=== PATIENT | female | born 1975 ===

== ENCOUNTER 2017-04-08 21:48 | Emergency (ER) | payer BC ==
[2017-04-08 21:49] VITALS: BMI 38.6
[2017-04-08 22:00] VITALS: BP 133/85; PULSE 90; RESP 17; TEMP 97.4; O2SAT 97
--- NOTE | 2017-04-08 22:13 | ED PDOC ---
Lower Extremity Pain/Injury Time Seen by Provider: 04/08/17 22:01 Chief Complaint (Nursing): Lower Extremity Problem/Injury Chief Complaint (Provider): left thigh pain History Per: Patient History/Exam Limitations: no limitations Additional Complaint(s): 41yo F in ED for eval of leg injury states that while running to the bus felt a pull to the thigh muscle and felt a pull/strain/crack sound to her thigh. no with pain with bearing weight and walking. denies hip pain denies back pain. deniesswelling to foot or calf pain. - Risk Factors DVT Risk Factors: Pos: None Past Medical History Reviewed: Historical Data, Nursing Documentation, Vital Signs Vital Signs: Last Vital Signs Temp 97.4 F L 04/08/17 21:57 Pulse 90 04/08/17 21:57 Resp 17 04/08/17 21:57 BP 133/85 04/08/17 21:57 Pulse Ox 97 04/08/17 21:57 - Medical History PMH: Anemia, Anxiety, Arthritis, Asthma, Bronchitis, Depression, Diabetes Denies: Alzheimer's Disease, Atrial Fibrillation, Cardia Arrhythmia, CHF, COPD, Dementia, Deep Vein Thrombosis, Emphysema, Hepatitis, HIV, HTN, Hypercholesterolemia, Migraine, Mitral Valve Prolapse, Multiple Sclerosis, Parkinson's Disease, Peripheral Edema, Pneumonia, Pulmonary Embolism, Chronic Kidney Disease, Seizures, Sexually Transmitted Disease, Sleep Apnea, TIA - Surgical History Surgical History: Back Surgery, Cholecystectomy (2007), Denies: Pacemaker - Family History Family History: States: Unknown Family Hx - Immunization History Hx Influenza Vaccination: Yes - Home Medications Home Medications: Ambulatory Orders Medication Instructions Recorded diaZEpam [Valium] 5 mg PO TID #0 tab 01/21/16 Sulfamethoxazole/Trimethoprim 1 tab PO BID 01/27/16 [Bactrim DS Tab] metFORMIN [glucOPHAGE] 500 mg PO BID 01/27/16 oxyCODONE/Acetaminophen [Percocet 1 tab PO Q4 PRN 01/27/16 5/325 mg Tab] Ibuprofen [Motrin] 400 mg PO Q6 #30 tab 04/08/17 - Allergies Allergies/Adverse Reactions: Allergies Allergy/AdvReac Type Severity Reaction Status Date / Time seasonal Allergy NAUSEA Uncoded 04/08/17 22:00 Review of Systems ROS Statement: Except As Marked, All Systems Reviewed And Found Negative Musculoskeletal: Positive for: Leg Pain Physical Exam - Reviewed Nursing Documentation Reviewed: Yes Vital Signs Reviewed: Yes - Physical Exam Appears: Positive for: Well, Non-toxic, No Acute Distress Skin: Positive for: Normal Color, Warm, DRY Cardiovascular/Chest: Positive for: Regular Rate, Rhythm Respiratory: Positive for: CNT, Normal Breath Sounds Gastrointestinal/Abdominal: Positive for: Soft Extremity: Positive for: Other (left LE: no hip pain no abd [pain very mild knee pain no swelilng thigh superior to knee pain on palpation. no IT band tenderness. ankle WNL) Neurologic/Psych: Positive for: Alert, Oriented - ECG O2 Sat by Pulse Oximetry: 97 - Progress ED Course And Treament: pt given tylenol xray r/o fx. Medical Decision Making Medical Decision Making: Patient given a knee immobilizer and advised to use warm compresses to the area and massage to help relieve pain. Patient also informed to take Motrin as needed for pain and to rest her leg. Disposition - Clinical Impression Clinical Impression: Muscle pain - Patient ED Disposition Is Patient to be Admitted: No Counseled Patient/Family Regarding: Need For Followup, Rx Given - Disposition Disposition: Routine/Home Disposition Time: 22:52 Condition: STABLE Prescriptions: Ibuprofen [Motrin] 400 mg PO Q6 #30 tab Instructions: Musculoskeletal Pain (ED) Forms: [employer] (Citizen Of [place])
--- NOTE | 2017-04-09 09:31 | RAD ---
HISTORY: injury COMPARISON: No prior FINDINGS: BONES: Normal. No fracture. JOINTS: Normal. No osteoarthritis. SOFT TISSUE: Normal. OTHER FINDINGS: None . IMPRESSION: Normal Bone Xray.
--- NOTE | 2017-04-09 09:31 | RAD ---
HISTORY: injury COMPARISON: No prior FINDINGS: BONES: Normal. No fracture. JOINTS: Normal. No osteoarthritis. SOFT TISSUE: Normal. OTHER FINDINGS: None . IMPRESSION: Normal Bone Xray.
== END 2017-04-08 22:44 | disposition home or self-care (01) ==
LOC: H.ER 21:48
DX: M79.1 Myalgia (principal)

== ENCOUNTER 2017-07-02 15:45 | Inpatient (IN) | payer BC ==
[2017-07-02 15:45] VITALS: BMI 38.6
--- NOTE | 2017-07-02 16:36 | ED PDOC ---
HPI: General Adult Time Seen by Provider: 07/02/17 16:03 Chief Complaint (Nursing): Chest Pain History Per: Patient Additional Complaint(s): Pt. states for the past 4 days she's been feeling anxious as her was recently hospitalized. States that she has been taking her klonopin with minimal relief. Yesterday she began to develop mid-sternal chest pain radiating to both arms and neck associated with intermittent palpitations. Denies SI/HI, hallucinations, hemoptysis, fever, cough, abdominal pain, hx of DV or PE, leg pain, prolonged limb immobilization, hemoptysis. Past Medical History Reviewed: Historical Data, Nursing Documentation, Vital Signs Vital Signs: Last Vital Signs Temp 98.0 F 07/02/17 15:58 Pulse 76 07/02/17 15:58 Resp 16 07/02/17 15:58 BP 120/59 L 07/02/17 15:58 Pulse Ox 99 07/02/17 18:43 - Medical History PMH: Anemia, Anxiety, Arthritis, Asthma, Bronchitis, Depression, Diabetes Denies: Alzheimer's Disease, Atrial Fibrillation, Cardia Arrhythmia, CHF, COPD, Dementia, Deep Vein Thrombosis, Emphysema, Hepatitis, HIV, HTN, Hypercholesterolemia, Migraine, Mitral Valve Prolapse, Multiple Sclerosis, Parkinson's Disease, Peripheral Edema, Pneumonia, Pulmonary Embolism, Chronic Kidney Disease, Seizures, Sexually Transmitted Disease, Sleep Apnea, TIA - Surgical History Surgical History: Back Surgery, Cholecystectomy (2007), Denies: Pacemaker - Family History Family History: States: No Known Family Hx - Immunization History Hx Influenza Vaccination: Yes - Home Medications Home Medications: Ambulatory Orders Medication Instructions Recorded diaZEpam [Valium] 5 mg PO TID #0 tab 01/21/16 Sulfamethoxazole/Trimethoprim 1 tab PO BID 01/27/16 [Bactrim DS Tab] metFORMIN [glucOPHAGE] 500 mg PO BID 01/27/16 oxyCODONE/Acetaminophen [Percocet 1 tab PO Q4 PRN 01/27/16 5/325 mg Tab] Ibuprofen [Motrin] 400 mg PO Q6 #30 tab 04/08/17 - Allergies Allergies/Adverse Reactions: Allergies Allergy/AdvReac Type Severity Reaction Status Date / Time seasonal Allergy NAUSEA Uncoded 04/08/17 22:00 Review of Systems ROS Statement: Except As Marked, All Systems Reviewed And Found Negative Cardiovascular: Positive for: Chest Pain Physical Exam - Reviewed Nursing Documentation Reviewed: Yes Vital Signs Reviewed: Yes - Physical Exam Appears: Positive for: Well, Non-toxic, No Acute Distress Head Exam: Positive for: ATRAUMATIC, NORMAL INSPECTION, NORMOCEPHALIC Skin: Positive for: Normal Color, Warm. Negative for: Rash Eye Exam: Positive for: EOMI, Normal appearance, PERRL ENT: Positive for: Normal ENT Inspection Neck: Positive for: Normal, Painless ROM Cardiovascular/Chest: Positive for: Regular Rate, Rhythm. Negative for: Tachycardia Respiratory: Positive for: CNT, Normal Breath Sounds Gastrointestinal/Abdominal: Positive for: Normal Exam, Soft. Negative for: Tenderness Back: Positive for: Normal Inspection Extremity: Positive for: Normal ROM Neurologic/Psych: Positive for: Alert, Oriented. Negative for: Aphasia, Facial Droop - Laboratory Results Result Diagrams: 07/02/17 16:40 07/02/17 16:40 - ECG ECG: Positive for: Interpreted By Me ECG Rhythm: Positive for: Sinus Rhythm. Negative for: ST/T Changes O2 Sat by Pulse Oximetry: 99 - Radiology X-Ray: Interpreted by Me (CXR) X-Ray Interpretation: No Acute Disease - Progress ED Course And Treament: Labs ordered. Xanax 0.5mg PO ordered. ASA 162mg chew ordered (pt. took 81mg PO today). 1842 On re-evaluation, pt. reports mild improvement. Case d/w Dr. Mota and arrangements made for 23 hr telemetry observation. Disposition - Clinical Impression Clinical Impression: Acute chest pain - Patient ED Disposition Is Patient to be Admitted: Yes - Disposition Disposition Time: 18:43 Condition: STABLE
[2017-07-02 16:52] LABS: BASO # 0.1 K/uL (0.0-0.2); BASO % 0.9 % (0.0-2.0); EOS # 0.1 K/uL (0.0-0.7); EOS % 1.1 % (0.0-4.0); HEMATOCRIT 39.5 % (34.0-47.0); LYMPH # 2.7 K/uL (1.0-4.3); LYMPH % 27.5 % (20.0-40.0); MEAN CELL VOLUME 84.3 fl (81.0-99.0); MEAN CORPUSCULAR HEMOGLOBIN 28.5 pg (27.0-31.0); MEAN CORPUSCULAR HGB CONC 33.9 g/dL (33.0-37.0); MONO # 0.8 K/uL (0.0-0.8); MONO % 8.2 % (0.0-10.0); NEUT # 6.2 K/uL (1.8-7.0); NEUT % 62.3 % (50.0-75.0); NRBC % 0.1 % (0.0-0.0); RED CELL DISTRIBUTION WIDTH 13.7 % (11.5-14.5); WHITE BLOOD COUNT 9.9 K/uL (4.8-10.8)
[2017-07-02 17:02] LABS: ALB/GLOB RATIO 1.2 (1.0-2.1); ALKALINE PHOSPHATASE 92 U/L (38-126); ALT/SGPT 33 U/L (9-52); AST/SGOT 19 U/L (14-36); BILIRUBIN,TOTAL 0.6 mg/dl (0.2-1.3); BLOOD UREA NITROGEN 10 mg/dl (7-17); CARBON DIOXIDE 24 mmol/L (22-30); CHLORIDE 102 mmol/L (98-107); GFR AFRICAN-AMERICAN > 60; GLUCOSE,RANDOM 107 mg/dL (65-105); POTASSIUM 3.9 MMOL/L (3.6-5.0); SODIUM 139 mmol/l (132-148); TOTAL PROTEIN 7.5 G/DL (6.3-8.2)
[2017-07-02 18:08] LABS: THYROID STIMULATING HORMONE 1.23 mIU/ML (0.46-4.68)
[2017-07-03 05:38] LABS: HEMATOCRIT 39.2 % (34.0-47.0); MEAN CELL VOLUME 85.5 fl (81.0-99.0); MEAN CORPUSCULAR HEMOGLOBIN 28.9 pg (27.0-31.0); MEAN CORPUSCULAR HGB CONC 33.8 g/dL (33.0-37.0); RED CELL DISTRIBUTION WIDTH 13.8 % (11.5-14.5); WHITE BLOOD COUNT 7.7 K/uL (4.8-10.8)
[2017-07-03 05:46] LABS: ALB/GLOB RATIO 1.1 (1.0-2.1); ALKALINE PHOSPHATASE 79 U/L (38-126); ALT/SGPT 30 U/L (9-52); AST/SGOT 19 U/L (14-36); BILIRUBIN,TOTAL 0.7 mg/dl (0.2-1.3); BLOOD UREA NITROGEN 11 mg/dl (7-17); CALCIUM 8.8 mg/dL (8.4-10.2); CARBON DIOXIDE 27 mmol/L (22-30); CHLORIDE 103 mmol/L (98-107); CHOLESTEROL 126 mg/dL (0-199); GFR AFRICAN-AMERICAN > 60; GLUCOSE,RANDOM 124 mg/dL (65-105); TOTAL PROTEIN 7.1 G/DL (6.3-8.2)
[2017-07-03 05:48] LABS: T4 13.7 ug/dl (5.5-11.0)
[2017-07-03 05:52] LABS: POTASSIUM 3.7 MMOL/L (3.6-5.0); SODIUM 139 mmol/l (132-148)
[2017-07-03 06:02] LABS: THYROID STIMULATING HORMONE 0.93 mIU/ML (0.46-4.68)
[2017-07-03] MEDS: Enoxaparin 40 mg Syringe SC SCH (08:50)
--- NOTE | 2017-07-03 13:25 | RAD ---
HISTORY: chest pain COMPARISON: Chest radiographs 01/12/2016. FINDINGS: LUNGS: No active pulmonary disease. PLEURA: No significant pleural effusion identified, no pneumothorax apparent. CARDIOVASCULAR: Normal. OSSEOUS STRUCTURES: No significant abnormalities. VISUALIZED UPPER ABDOMEN: Normal. OTHER FINDINGS: None. IMPRESSION: No interval acute cardiopulmonary disease appreciated.
[2017-07-03] MEDS ORDERED: Potassium Chloride 20 mEq ER Tab PO ONE (19:30)
[2017-07-03] MEDS ORDERED: Magnesium Sulfate 2 gm/50 ml 2 GM/50 ML BAG IVPB ONE (20:00)
--- NOTE | 2017-07-03 22:27 | CP.PCM.CON ---
History of Present Illness - History of Present Illness History of Present Illness: 41YO ADMITTED WITH CP. DESCRIBED TIGHTNESS SUBSTERNAL WITH ASSOCIATED DYSPNEA, PALP, LH, LUE PARASTHESIAS WITH B/L HAND NUMBNESS. SHE STATES HER SYMPTOMS ARE SIMILAR TO HER ANXIETY, HOWEVER THEY ARE MUCH MORE SEVERE AND MORE FREQUENT. SHE HAS MULTIPLE RISK FACTORS INCLUDING DM, HTN, DYSLIPIDEMIA. SHE HAS NOT HAD MENSTRAL CYCLES FOR 2 YEARS. sHE HAS NO KNOWN FAM HX AND DENIES TOBACCO USE. PT HAS BEEN UNDER INCREASED STRESS LATELY. EKG DONE AT [facility] REVEALS VENT TRIGEMINY. TELE REVEALS NSR. SHE HAD A ST AND ECHO 6 YEARS AGO WHICH WERE NEGATIVE. Review of Systems - Constitutional Constitutional: As Per HPI. absent: Anorexia, Chills, Daytime Sleepiness, Excessive Sweating, Fatigue, Fever, Frequent Falls, Headache, Increased Appetite , Lethargy, Malaise, Night Sweats, Snoring, Sleep Apnea, Weight Gain, Weight Loss, Weakness, Other - EENT Eyes: As Per HPI. absent: Blind Spots, Blurred Vision, Change in Vision, Decreased Night Vision, Diplopia, Discharge, Dry Eye, Exophthalmos, Floaters, Irritation, Itchy Eyes, Loss of Peripheral Vision, Pain, Photophobia, Requires Corrective Lenses, Sees Flashes, Spots in Vision, Tunnel Vision, Other Visual Disturbances, Loss of Vision, Other Ears: As Per HPI. absent: Decreased Hearing, Ear Discharge, Ear Pain, Tinnitus , Abnormal Hearing, Disequilibrium, Dizziness, Other Nose/Mouth/Throat: As Per HPI. absent: Epistaxis, Nasal Congestion, Nasal Discharge, Nasal Obstruction, Nasal Trauma, Nose Pain, Post Nasal Drip, Sinus Pain, Sinus Pressure, Bleeding Gums, Change in Voice, Dental Pain, Dry Mouth, Dysphagia, Halitosis, Hoarsness, Lip Swelling, Mouth Lesions, Mouth Pain, Odynophagia, Sore Throat, Throat Swelling, Tongue Swelling, Facial Pain, Neck Pain, Neck Mass, Other - Breasts Breasts: As Per HPI. absent: Change in Shape, Mass, Pain, Nipple Discharge, Nipple Inversion, Skin Changes, Swelling, Other - Cardiovascular Cardiovascular: As Per HPI, Chest Pain at Rest, Dyspnea, Lightheadedness, Palpitations, Radiating Pain. absent: Acrocyanosis, Chest Pain, Chest Pain with Activity, Claudication, Diaphoresis, Dyspnea on Exertion, Edema, Irregular Heart Rhythm, Pain Radiating to Arm/Neck/Jaw, Leg Edema, Leg Ulcers, Orthopnea, Paroxysmal Nocturnal Dyspnea, Pedal Edema, Rapid Heart Rate, Slow Heart Rate, Syncope, Other - Respiratory Respiratory: As Per HPI. absent: Cough, Dyspnea, Hemoptysis, Dyspnea on Exertion, Wheezing, Snoring, Stridor, Pain on Inspiration, Chest Congestion, Excessive Mucous Production, Change in Mucous Color, Pain with Coughing, Other - Gastrointestinal Gastrointestinal: As Per HPI, Abdominal Pain. absent: Belching, Bloating, Change in Bowel Habits, Change in Stool Character, Coffee Ground Emesis, Constipation, Cramping, Diarrhea, Dyspepsia, Dysphagia, Early Satiety, Excessive Flatus, Fecal Incontinence, Heartburn, Hematemesis, Hematochezia, Loose Stools, Melena, Nausea, Odynophagia, Temesmus, Vomiting, Other - Genitourinary Genitourinary: As Per HPI. absent: Change in Urinary Stream, Difficulty Urinating, Dysuria, Flank Pain, Hematuria, Pyuria, Nocturia, Urinary Incontinence, Urinary Frequency, Urinary Hesitance, Urinary Urgency, Voiding Freq/Small Amts, Freq UTI, Hx Renal/Bladder Calculi, Hx /Renal Surgery, Bladder Distension, Other - Reproductive: Female Reproductive:Female: Post Menopausal. absent: As Per HPI, Amenorrhea, Amenorrhea/ Control, Currently Menstual, Cycle <21 Days, Cycle >35 Days, Cycle Variable, Menses 1-7 Days, Menses >/= 8 Days, Menses Variable, Cycle > 4 Weeks Between, No Menses for 6 Months, Heavy Menses, Light Menses, Normal Menses , Spotting Between Cycles, S/P Hysterectomy, Menopausal, Premenarche, Abnormal Vaginal Bleeding, Dysmenorrhea, Dyspareunia, Genital Lesions, Genital Pruritis, Pelvic Pain, Prolapse Symptoms, Sexual Dysfunction, Vaginal Discharge, Vaginal Dryness, Vaginal Odor, Vaginal Pruritis, Other - Menstruation Menstruation: As Per HPI. absent: Amenorrhea, Amenorrhea/ Control, Currently Menstual, Cycle <21 Days, Cycle >35 Days, Cycle Variable, Menses 1-7 Days, Menses >/= 8 Days, Menses Variable, Cycle > 4 Weeks Between, No Menses for 6 Months, Heavy Menses, Light Menses, Normal Menses, Spotting Between Cycles , S/P Hysterectomy, Menopausal, Post Menopausal, Premenarche, Abnormal Vaginal Bleeding, Dysmenorrhea, Other - Musculoskeletal Musculoskeletal: As Per HPI. absent: Abnormal Gait, Arthralgias, Atrophy, Back Pain, Deformity, Joint Swelling, Limited Range of Motion, Loss of Height, Muscle Cramps, Muscle Weakness, Myalgias, Neck Pain, Numbness, Radiating Pain into Limb, Stiffness, Tingling, Other - Integumentary Integumentary: As Per HPI. absent: Acne, Alopecia, Bleeding Lesions, Change in Hair, Change in Nails, Change in Pigmentation, Changing Lesions, Dry Skin, Erythema, Furuncle, Hirsutism, Lesions, New Lesions, Non-Healing Lesions, Photosensitivity, Pruritus, Rash, Skin Pain, Skin Ulcer, Sores, Striae, Swelling , Unusual Bruising, Wounds, Jaundice, Other - Neurological Neurological: As Per HPI. absent: Abnormal Gait, Abnormal Hearing, Abnormal Movements, Abnormal Speech, Behavioral Changes, Burning Sensations, Confusion, Convulsions, Disequilibrium, Dizziness, Numbness, Focal Weakness, Frequent Falls , Headaches, Lack of Coordination, Loss of Vision, Memory Loss, Paresthesias, Radicular Pain, Restless Legs, Sensory Deficit, Syncope, Tingling, Tremor, Vertigo, Weakness, Other Visual Disturbances, Other - Psychiatric Psychiatric: As Per HPI. absent: Abnormal Sleep Pattern, Anhedonia, Anxiety, Auditory Hallucinations, Behavioral Changes, Change in Appetite, Change in Libido, Confusion, Depression, Difficulty Concentrating, Hallucinations, Homicidal Ideation, Hopelessness, Irritability, Memory Loss, Mood Swings, Panic Attacks, Paranoia, Suicidal Ideation, Visual Hallucinations, Tactile Hallucinations, Other - Endocrine Endocrine: As Per HPI. absent: Change in Body Appearance, Change in Libido, Cold Intolorance, Deepening of Voice, Excessive Sweating, Fatigue, Flushing, Heat Intolorance, Increase in Ring/Shoe/Hat Size, Palpitations, Polydipsia, Polyphagia, Polyuria, Other - Hematologic/Lymphatic Hematologic: As Per HPI. absent: Easy Bleeding, Easy Bruising, Lymphadenopathy , Other Past Patient History - Infectious Disease Hx of Infectious Diseases: None - Past Medical History & Family History Past Medical History?: Yes - Past Social History Smoking Status: Never Smoked Chewing Tobacco Use: No Cigar Use: No Alcohol: None Drugs: Denies Home Situation {Lives}: With Family Domestic Violence: Negative - CARDIAC Hx Cardiac Disorders: Yes Hx Atrial Fibrillation: No Hx Cardia Arrhythmia: No Hx Congestive Heart Failure: No Hx Hypercholesterolemia: Yes Hx Hypertension: Yes Hx Mitral Valve Prolapse: No Hx Pacemaker: No Hx Peripheral Edema: No - PULMONARY Hx Respiratory Disorders: Yes Hx Asthma: Yes Hx Bronchitis: Yes Hx Chronic Obstructive Pulmonary Disease (COPD): No Hx Emphysema: No Hx Pneumonia: No Hx Pulmonary Embolism: No Hx Sleep Apnea: No - NEUROLOGICAL Hx Neurological Disorder: No Hx Alzheimer's Disease: No Hx Dementia: No Hx Migraine: No Hx Multiple Sclerosis: No Hx Parkinson's Disease: No Hx Seizures: No Hx Transient Ischemic Attacks (TIA): No - HEENT Hx HEENT Problems: No - RENAL Hx Chronic Kidney Disease: No - ENDOCRINE/METABOLIC Hx Endocrine Disorders: Yes (DM) Hx Diabetes Mellitus Type 2: Yes - HEMATOLOGICAL/ONCOLOGICAL Hx Blood Disorders: Yes Hx AIDS: No Hx Anemia: Yes Hx Human Immunodeficiency Virus (HIV): No - INTEGUMENTARY Hx Dermatological Problems: No - MUSCULOSKELETAL/RHEUMATOLOGICAL Hx Musculoskeletal Disorders: Yes Hx Arthritis: Yes Hx Falls: No - GASTROINTESTINAL Hx Gastrointestinal Disorders: No - GENITOURINARY/GYNECOLOGICAL Hx Genitourinary Disorders: No Hx Sexually Transmitted Disorders: No - PSYCHIATRIC Hx Psychophysiologic Disorder: Yes Hx Anxiety: Yes Hx Substance Use: No - SURGICAL HISTORY Hx Surgeries: Yes Hx Section: Yes Hx Cholecystectomy: Yes (2007) - ANESTHESIA Hx Anesthesia: Yes Hx Anesthesia Reactions: No Hx Malignant Hyperthermia: No Meds Allergies/Adverse Reactions: Allergies Allergy/AdvReac Type Severity Reaction Status Date / Time seasonal Allergy NAUSEA Uncoded 04/08/17 22:00 - Medications Medications: Current Medications Amlodipine Besylate (Norvasc) 5 mg PO HS [facility] Last Admin: 07/03/17 22:00 Dose: 5 mg Atorvastatin Calcium (Lipitor) 20 mg PO HS [facility] Last Admin: 07/03/17 21:59 Dose: 20 mg Enoxaparin Sodium (Lovenox) 40 mg SC DAILY [facility] PRN Reason: Protocol Last Admin: 07/03/17 08:50 Dose: 40 mg Ibuprofen (Motrin Tab) 600 mg PO HS [facility] Last Admin: 07/03/17 22:00 Dose: Not Given Lisinopril (Zestril) 5 mg PO HS [facility] Last Admin: 07/03/17 22:00 Dose: 5 mg Metformin HCl (Glucophage) 500 mg PO TID [facility] Last Admin: 07/03/17 17:02 Dose: 500 mg Potassium Chloride (K-Dur 20 Meq Er Tab) 40 meq PO ONCE ONE Stop: 07/04/17 01:31 Physical Exam - Constitutional Appears: Well - Head Exam Head Exam: ATRAUMATIC, NORMAL INSPECTION, NORMOCEPHALIC - Eye Exam Eye Exam: EOMI, Normal appearance, PERRL. absent: Conjunctival injection, Nystagmus, Periorbital swelling, Periorbital tenderness, Scleral icterus Pupil Exam: NORMAL ACCOMODATION, PERRL. absent: Fixed, Irregular, Miosis, Mydriatic, Unequal - ENT Exam ENT Exam: Mucous Membranes Moist, Normal Exam. absent: Mucous Membranes Dry, Normal External Ear Exam, Normal Oropharynx, TM's Normal Bilaterally - Neck Exam Neck exam: Positive for: Normal Inspection. Negative for: Full Rom, Lymphadenopathy, Meningismus, Tenderness, Thyromegaly - Respiratory Exam Respiratory Exam: Clear to Auscultation Bilateral, NORMAL BREATHING PATTERN. absent: Accessory Muscle Use, Chest Wall Tenderness, Decreased Breath Sounds, Prolonged Expiratory Phase, Rales, Rhonchi, Wheezes, Respiratory Distress, Stridor - Cardiovascular Exam Cardiovascular Exam: REGULAR RHYTHM, +S1, +S2, Systolic Murmur. absent: Bradycardia, Tachycardia, Clicks, Diastolic murmur, Gallop, Irregular Rhythm, JVD, RRR, Rubs, +S4 - GI/Abdominal Exam GI & Abdominal Exam: Normal Bowel Sounds, Soft. absent: Bruit, Diminished Bowel Sounds, Distended, Firm, Guarding, Hernia, Hyperactive Bowel Sounds, Hypoactive Bowel Sounds, Mass, Organomegaly, Pulsatile Mass, Rebound, Rigid, Tenderness - Rectal Exam Rectal Exam: Deferred - Extremities Exam Extremities exam: Positive for: normal inspection. Negative for: calf tenderness, full ROM, joint swelling, normal capillary refill, pedal edema, tenderness, pedal pulses present - Back Exam Back exam: NORMAL INSPECTION. absent: CVA tenderness (L), CVA tenderness (R), FULL ROM, muscle spasm, paraspinal tenderness, rash noted, tenderness, vertebral tenderness - Neurological Exam Neurological exam: Alert, CN II-XII Intact, Normal Gait, Oriented x3, Reflexes Normal - Psychiatric Exam Psychiatric exam: Normal Affect, Normal Mood - Skin Skin Exam: Dry, Intact, Normal Color, Warm Results - Vital Signs Recent Vital Signs: Last Vital Signs Temp 98.4 F 07/03/17 19:56 Pulse 87 07/03/17 22:00 Resp 20 07/03/17 19:56 BP 144/88 07/03/17 22:00 Pulse Ox 96 07/03/17 19:56 - Labs Result Diagrams: 07/03/17 04:10 07/03/17 04:10 Labs: Laboratory Results - last 24 hr 07/03/17 07/03/17 07/03/17 00:50 04:10 04:10 WBC 7.7 RBC 4.58 Hgb 13.2 Hct 39.2 MCV 85.5 MCH 28.9 MCHC 33.8 RDW 13.8 Plt Count 308 Sodium 139 Potassium 3.7 Chloride 103 Carbon Dioxide 27 Anion Gap 13 BUN 11 Creatinine 0.6 L Est GFR ( Amer) > 60 Est GFR (Non-Af Amer) > 60 POC Glucose (mg/dL) Random Glucose 124 H Calcium 8.8 Total Bilirubin 0.7 AST 19 ALT 30 Alkaline Phosphatase 79 Troponin I < 0.0120 Total Protein 7.1 Albumin 3.7 Globulin 3.4 Albumin/Globulin Ratio 1.1 Triglycerides 120 Cholesterol 126 LDL Cholesterol Direct 71 HDL Cholesterol 36 Vitamin B12 326 Thyroxine (T4) 13.7 H Total T3 1.46 L TSH 3rd Generation 0.93 07/03/17 07/03/17 07/03/17 05:31 09:30 09:30 WBC RBC Hgb Hct MCV MCH MCHC RDW Plt Count Sodium Potassium Chloride Carbon Dioxide Anion Gap BUN Creatinine Est GFR ( Amer) Est GFR (Non-Af Amer) POC Glucose (mg/dL) 134 H Random Glucose Calcium Total Bilirubin AST ALT Alkaline Phosphatase Troponin I < 0.0120 Total Protein Albumin Globulin Albumin/Globulin Ratio Triglycerides Cholesterol LDL Cholesterol Direct HDL Cholesterol Vitamin B12 370 Thyroxine (T4) Total T3 TSH 3rd Generation 07/03/17 07/03/17 07/03/17 11:19 15:44 20:51 WBC RBC Hgb Hct MCV MCH MCHC RDW Plt Count Sodium Potassium Chloride Carbon Dioxide Anion Gap BUN Creatinine Est GFR ( Amer) Est GFR (Non-Af Amer) POC Glucose (mg/dL) 178 H 125 H 110 Random Glucose Calcium Total Bilirubin AST ALT Alkaline Phosphatase Troponin I Total Protein Albumin Globulin Albumin/Globulin Ratio Triglycerides Cholesterol LDL Cholesterol Direct HDL Cholesterol Vitamin B12 Thyroxine (T4) Total T3 TSH 3rd Generation Assessment & Plan (1) Diabetes Status: Acute (2) HTN (hypertension) Status: Acute (3) Dyslipidemia Status: Acute (4) Acute chest pain Status: Acute (5) Anxiety Status: Acute - Assessment and Plan (Free Text) Plan: PTS SYMPTOMS APPEAR TO BE SECONDARY TO ANXIETY. SHE DOES HAVE MULTIPLE CARDIAC RISK FACTORS, HOWEVER SHE RULED OUT AND IS CP FREE. ALSO SHE IS YOUNG. PLAN IS TO REPLEAT LYTES, RECHECK EKG, CHECK ECHO. IF THESE ARE NML THEN MAY HAVE ST OUTPT. SHOULD FU IN OFFICE WITHIN 2 WEEKS. 60 MIN TOTAL CARE TIME.
--- NOTE | 2017-07-03 22:41 | CARD ---
APPROVED REPORT EKG Measurement Heart [id number] <Conclusion> Sinus rhythm with frequent premature ventricular complexes Prolonged QT Abnormal ECG
[2017-07-04] MEDS ORDERED: Potassium Chloride 20 mEq ER Tab PO ONE (01:30)
[2017-07-04 06:07] LABS: HEMATOCRIT 40.3 % (34.0-47.0); MEAN CELL VOLUME 83.9 fl (81.0-99.0); MEAN CORPUSCULAR HEMOGLOBIN 28.4 pg (27.0-31.0); MEAN CORPUSCULAR HGB CONC 33.9 g/dL (33.0-37.0); RED CELL DISTRIBUTION WIDTH 13.6 % (11.5-14.5); WHITE BLOOD COUNT 7.9 K/uL (4.8-10.8)
[2017-07-04 06:46] LABS: THYROID STIMULATING HORMONE 1.15 mIU/ML (0.46-4.68)
[2017-07-04 07:49] LABS: ALB/GLOB RATIO 1.1 (1.0-2.1); ALKALINE PHOSPHATASE 81 U/L (38-126); ALT/SGPT 32 U/L (9-52); AST/SGOT 22 U/L (14-36); BILIRUBIN,TOTAL 0.4 mg/dl (0.2-1.3); BLOOD UREA NITROGEN 11 mg/dl (7-17); CALCIUM 8.7 mg/dL (8.4-10.2); CARBON DIOXIDE 27 mmol/L (22-30); CHLORIDE 103 mmol/L (98-107); GFR AFRICAN-AMERICAN > 60; GLUCOSE,RANDOM 129 mg/dL (65-105); POTASSIUM 4.4 MMOL/L (3.6-5.0); SODIUM 140 mmol/l (132-148); TOTAL PROTEIN 7.6 G/DL (6.3-8.2)
[2017-07-04] MEDS: Enoxaparin 40 mg Syringe SC SCH (09:17)
--- NOTE | 2017-07-04 09:45 | HP ---
[facility] COMPLAINT: Chest pain. HISTORY OF PRESENT ILLNESS: This is a 41-year-old female with history of morbid obesity, asthma, arthritis, anxiety, and anemia, who was under a lot of stress recently for her being hospitalized and felt very anxious and started having midsternal chest pain, which was radiating to both arms and also in the neck, also it was associated with heart palpitation, so the patient was brought to the emergency room and was admitted for further management. PAST MEDICAL HISTORY: Significant for anxiety, anemia, arthritis, asthma, bronchitis, depression, and diabetes. PAST SURGICAL HISTORY: Remarkable for gallbladder surgery, sections, and back surgery. PERSONAL HISTORY: The patient is currently nonsmoker, nondrinker. No substance abuse. MEDICATIONS: The patient is on Bactrim, Valium, metformin, Percocet, Motrin. ALLERGIES: THE PATIENT IS NOT ALLERGIC TO ANY MEDICATION, BUT DOES COMPLAIN OF SEASONAL ALLERGY. FAMILY HISTORY: Noncontributory. REVIEW OF SYSTEMS: Positive for chest pain, arm pain, neck pain, palpitations. Review of systems otherwise is negative for headache, dizziness, syncope, loss of consciousness, nausea, vomiting, diarrhea, constipation, any knee joint or extremity pain. Review of systems of all other organ system is unremarkable. PHYSICAL EXAMINATION GENERAL: Well-built, well-nourished, morbidly obese 41-year-old female, in no acute distress. VITAL SIGNS: Temperature 98.4, pulse 92, respirations 20, blood pressure 100/70. HEENT: Pupils reacting to light. No JVD. No thyromegaly. No lymphadenopathy. No nystagmus. Normocephalic, atraumatic skull. HEART: S1 and S2. Normal and regular. LUNGS: Good bilateral air exchange. ABDOMEN: Soft, nontender. No organomegaly. No fluid. Bowel sounds are plus. EXTREMITIES: No edema. No calf swelling. No tenderness. No acute ischemia. CENTRAL NERVOUS SYSTEM: Essentially unchanged and there is no sign of any acute gross focal motor or sensory neurological deficit. DIAGNOSTIC DATA: Available diagnostic data reviewed. Telemetry monitoring does not reveal significant arrhythmias. WBC 7.7, hemoglobin 13.2, hematocrit 39.2, platelet 308. Sodium 139, potassium 3.7, chloride 103, bicarb 27, BUN 11, creatinine 0.6. SMA-12 is unremarkable. Accu-Cheks are 107, 124, and 134. Chest x-ray is clear. EKG shows normal sinus rhythm without any acute ST-T changes. The patient has occasional PVCs. ADMITTING IMPRESSION: Chest pain, type 2 diabetes, controlled; morbid obesity with body mass index of 41, anxiety, anemia, depression, arthritis. PLAN: As ordered. Case and plan discussed with the patient. Matthew Mota MD
--- NOTE | 2017-07-04 12:11 | CP.PCM.PN ---
<RubenStella lopez - Last Filed: 07/04/17 12:49> Subjective - Date & Time of Evaluation Date of Evaluation: 07/04/17 Time of Evaluation: 12:09 - Subjective Subjective: Patient was seen and examined at bedside with Dr. Mota. Patient appears to be doing well. Denies any chest pain, SOB, nausea or vomiting. Cardio has been consulted awaiting echocardiogram and troponin. Objective - Vital Signs/Intake and Output Vital Signs (last 24 hours): Temp Pulse Resp BP Pulse Ox 98.4 F 96 H 19 95/65 L 94 L 07/04/17 08:00 07/04/17 09:00 07/04/17 08:00 07/04/17 08:00 07/04/17 08:00 - Medications Medications: Current Medications Amlodipine Besylate (Norvasc) 5 mg PO [facility] Last Admin: 07/03/17 22:00 Dose: 5 mg Atorvastatin Calcium (Lipitor) 20 mg PO [facility] Last Admin: 07/03/17 21:59 Dose: 20 mg Enoxaparin Sodium (Lovenox) 40 mg SC DAILY [facility] PRN Reason: Protocol Last Admin: 07/04/17 09:17 Dose: 40 mg Ibuprofen (Motrin Tab) 600 mg PO [facility] Last Admin: 07/03/17 22:00 Dose: Not Given Lisinopril (Zestril) 5 mg PO [facility] Last Admin: 07/03/17 22:00 Dose: 5 mg Metformin HCl (Glucophage) 500 mg PO TID [facility] Last Admin: 07/04/17 09:17 Dose: 500 mg - Labs Labs: 07/04/17 04:15 07/04/17 04:15 - Constitutional Appears: No Acute Distress - Head Exam Head Exam: NORMAL INSPECTION - Eye Exam Eye Exam: Normal appearance - ENT Exam ENT Exam: Mucous Membranes Moist - Respiratory Exam Respiratory Exam: Clear to Ausculation Bilateral, NORMAL BREATHING PATTERN. absent: Rhonchi, Wheezes - Cardiovascular Exam Cardiovascular Exam: REGULAR RHYTHM, +S1, +S2 - GI/Abdominal Exam GI & Abdominal Exam: Soft, Normal Bowel Sounds. absent: Tenderness - Extremities Exam Extremities Exam: absent: Calf Tenderness - Neurological Exam Neurological Exam: Alert, Awake, CN II-XII Intact, Oriented x3 - Skin Skin Exam: Normal Color, Warm Assessment and Plan - Assessment and Plan (Free Text) Assessment: 1) Chest pain - Troponin x 1 neg - No acute findings on EKG - Awaiting serial troponin and Echo - Cardio consult appreciated - F/U with Echo 2) DM2 - Metformin 3) HLD - atoorvastatin 4)HTN - Lisinopril - Norvasc <Matthew Mota K - Last Filed: 07/06/17 11:29> Objective - Vital Signs/Intake and Output Vital Signs (last 24 hours): Temp Pulse Resp BP Pulse Ox 98.3 F 93 H 18 107/74 96 07/06/17 08:00 07/06/17 08:00 07/06/17 08:00 07/06/17 08:00 07/06/17 08:00 - Medications Medications: Current Medications Amlodipine Besylate (Norvasc) 5 mg PO HS [facility] Last Admin: 07/05/17 22:00 Dose: 5 mg Atorvastatin Calcium (Lipitor) 20 mg PO HS [facility] Last Admin: 07/05/17 21:52 Dose: 20 mg Clonazepam (Klonopin) 0.5 mg PO HS [facility] Enoxaparin Sodium (Lovenox) 40 mg SC DAILY [facility] PRN Reason: Protocol Last Admin: 07/06/17 09:04 Dose: 40 mg Ibuprofen (Motrin Tab) 600 mg PO HS [facility] Last Admin: 07/05/17 22:00 Dose: Not Given Metformin HCl (Glucophage) 500 mg PO TID [facility] Last Admin: 07/06/17 09:04 Dose: 500 mg Metoprolol Succinate (Toprol Xl) 25 mg PO DAILY [facility] Sertraline HCl (Zoloft) 50 mg PO HS [facility] Last Admin: 07/05/17 21:52 Dose: 50 mg - Labs Labs: 07/04/17 04:15 07/04/17 04:15 Assessment and Plan - Assessment and Plan (Free Text) Assessment: Patient was personally seen and examined by me in rounds with residents. Available labs and diagnostic data reviewed. Case, Patient's condition and management plan discussed with residents in rounds. Agree with resident's progress note. Plan: As ordered.
--- NOTE | 2017-07-04 14:58 | CARD ---
APPROVED REPORT EXAM: Two-dimensional and M-mode echocardiogram with Doppler and color Doppler. Other Information Quality : GoodRhythm : PVC's INDICATION Chest Pain 2D DIMENSIONS IVSd1.18 (0.7-1.1cm)LVDd4.92 (3.9-5.9cm) LVOT Diameter2.06 (1.8-2.4cm)PWd1.08 (0.7-1.1cm) IVSs1.42 (0.8-1.2cm)LVDs3.43 (2.5-4.0cm) FS (%) 30.2 %PWs1.54 (0.8-1.2cm) M-Mode DIMENSIONS Left Atrium (MM)4.09 (2.5-4.0cm)IVSd1.32 (0.7-1.1cm) Aortic Root3.21 (2.2-3.7cm)LVDd5.00 (4.0-5.6cm) Aortic Cusp Exc.2.50 (1.5-2.0cm)PWd1.18 (0.7-1.1cm) IVSs1.47 cmFS (%) 16 % LVDs4.21 (2.0-3.8cm)PWs1.62 cm Mitral Valve E/A ratio0.0 TDI E/Lateral E'0.0E/Medial E'0.0 LEFT VENTRICLE The left ventricle is normal size. There is normal left ventricular wall thickness. The systolic function is mildly to moderately impaired. The Ejection Fraction is 35-40%. There is global hypokinesis of the left ventricle. The left ventricular diastolic function is normal. No left ventricle thrombus noted on this study. There is no mass noted in the left ventricle. RIGHT VENTRICLE The right ventricle is normal size. There is normal right ventricular wall thickness. The right ventricular systolic function is normal. ATRIA The left atrium size is normal. The right atrium size is normal. The interatrial septum is intact with no evidence for an atrial septal defect. AORTIC VALVE The aortic valve is normal in structure and function. No aortic regurgitation is present. There is no aortic valvular stenosis. There is no aortic valvular vegetation. MITRAL VALVE The mitral valve is normal in structure and function. There is no evidence of mitral valve prolapse. There is no mitral valve stenosis. There is no mitral valve regurgitation noted. TRICUSPID VALVE The tricuspid valve is normal in structure and function. There is no tricuspid valve regurgitation noted. There is no tricuspid valve prolapse or vegetation. There is no tricuspid valve stenosis. PULMONIC VALVE The pulmonary valve is normal in structure and function. There is no pulmonic valvular regurgitation. There is no pulmonic valvular stenosis. GREAT VESSELS The aortic root is normal in size. The IVC is normal in size and collapses >50% with inspiration. PERICARDIAL EFFUSION The pericardium appears normal. There is no pleural effusion. <Conclusion> The left ventricle is normal size. The systolic function is mildly to moderately impaired. The Ejection Fraction is 35-40%. There is global hypokinesis of the left ventricle.
--- NOTE | 2017-07-04 17:10 | CP.PCM.PN ---
Subjective - Date & Time of Evaluation Date of Evaluation: 07/04/17 Time of Evaluation: 17:08 - Subjective Subjective: pt with increased hr while ambulating. also pvcs with ambulation. no cp. echo read as decreased ef however diastolic function is normal??? also pt with pvcs during imaging. Objective - Vital Signs/Intake and Output Vital Signs (last 24 hours): Temp Pulse Resp BP Pulse Ox 98.2 F 90 14 112/74 95 07/04/17 16:41 07/04/17 16:41 07/04/17 16:41 07/04/17 16:41 07/04/17 16:41 - Medications Medications: Current Medications Alprazolam (Xanax) 0.25 mg PO BID PRN PRN Reason: Anxiety Stop: 07/11/17 16:36 Amlodipine Besylate (Norvasc) 5 mg PO [facility] Last Admin: 07/03/17 22:00 Dose: 5 mg Atorvastatin Calcium (Lipitor) 20 mg PO [facility] Last Admin: 07/03/17 21:59 Dose: 20 mg Enoxaparin Sodium (Lovenox) 40 mg SC DAILY [facility] PRN Reason: Protocol Last Admin: 07/04/17 09:17 Dose: 40 mg Ibuprofen (Motrin Tab) 600 mg PO [facility] Last Admin: 07/03/17 22:00 Dose: Not Given Lisinopril (Zestril) 5 mg PO [facility] Last Admin: 07/03/17 22:00 Dose: 5 mg Metformin HCl (Glucophage) 500 mg PO TID [facility] Last Admin: 07/04/17 13:38 Dose: 500 mg Sertraline HCl (Zoloft) 50 mg PO [facility] - Labs Labs: 07/04/17 04:15 07/04/17 04:15 - Constitutional Appears: Well - Head Exam Head Exam: ATRAUMATIC, NORMAL INSPECTION, NORMOCEPHALIC - Eye Exam Eye Exam: EOMI, Normal appearance, PERRL Pupil Exam: NORMAL ACCOMODATION, PERRL - ENT Exam ENT Exam: Mucous Membranes Moist, Normal Exam - Neck Exam Neck Exam: Full ROM, Normal Inspection. absent: Lymphadenopathy, Meningismus, Tenderness, Thyromegaly - Respiratory Exam Respiratory Exam: Clear to Ausculation Bilateral, NORMAL BREATHING PATTERN. absent: Accessory Muscle Use, Chest Wall Tenderness, Decreased Breath Sounds, Prolonged Expiratory Phase, Rales, Rhonchi, Wheezes, Respiratory Distress, Stridor - Cardiovascular Exam Cardiovascular Exam: REGULAR RHYTHM, +S1, +S2, Murmur. absent: Bradycardia, Tachycardia, Clicks, Diastolic murmur, Gallop, Irregular Rhythm, JVD, RRR, Rubs , +S4 - GI/Abdominal Exam GI & Abdominal Exam: Soft, Normal Bowel Sounds. absent: Bruit, Distended, Firm , Guarding, Rigid, Tenderness, Diminished Bowel Sounds, Hernia, Hyperactive Bowel Sounds, Hypoactive Bowel Sounds, Organomegaly, Pulsatile Mass, Rebound, Mass - Rectal Exam Rectal Exam: Deferred - Extremities Exam Extremities Exam: Full ROM, Normal Capillary Refill, Normal Inspection. absent : Joint Swelling, Pedal Edema - Back Exam Back Exam: NORMAL INSPECTION - Neurological Exam Neurological Exam: Alert, Awake, CN II-XII Intact, Normal Gait, Oriented x3 - Psychiatric Exam Psychiatric exam: Normal Affect, Normal Mood - Skin Skin Exam: Dry, Intact, Normal Color, Warm Assessment and Plan (1) Diabetes Status: Acute (2) HTN (hypertension) Status: Acute (3) Dyslipidemia Status: Acute (4) Acute chest pain Status: Acute (5) Anxiety Status: Acute - Assessment and Plan (Free Text) Plan: ex nuc in am metoprolol instead of acei once st done. cont tele daily labs
--- NOTE | 2017-07-05 08:48 | CP.PCM.PN ---
<Stella Miranda - Last Filed: 07/05/17 10:35> Subjective - Date & Time of Evaluation Date of Evaluation: 07/05/17 Time of Evaluation: 08:32 - Subjective Subjective: - Patient seen and examined at bedside with Dr. Mota. Patient is doing well. Was anticipating going home but understands her test results. Patients Echo showed a EF of 35%. Patient is scheduled for a stress test today. Objective - Vital Signs/Intake and Output Vital Signs (last 24 hours): Temp Pulse Resp BP Pulse Ox 98.0 F 98 H 18 101/72 95 07/05/17 08:08 07/05/17 08:08 07/05/17 08:08 07/05/17 08:08 07/05/17 08:08 - Medications Medications: Current Medications Alprazolam (Xanax) 0.25 mg PO BID PRN PRN Reason: Anxiety Stop: 07/11/17 16:36 Last Admin: 07/04/17 17:28 Dose: 0.25 mg Amlodipine Besylate (Norvasc) 5 mg PO [facility] Last Admin: 07/04/17 21:26 Dose: 5 mg Atorvastatin Calcium (Lipitor) 20 mg PO [facility] Last Admin: 07/04/17 21:26 Dose: 20 mg Enoxaparin Sodium (Lovenox) 40 mg SC DAILY [facility] PRN Reason: Protocol Last Admin: 07/04/17 09:17 Dose: 40 mg Ibuprofen (Motrin Tab) 600 mg PO [facility] Last Admin: 07/04/17 21:26 Dose: Not Given Lisinopril (Zestril) 5 mg PO [facility] Last Admin: 07/04/17 21:25 Dose: 5 mg Metformin HCl (Glucophage) 500 mg PO TID [facility] Last Admin: 07/04/17 17:24 Dose: 500 mg Sertraline HCl (Zoloft) 50 mg PO [facility] Last Admin: 07/04/17 21:26 Dose: 50 mg - Labs Labs: 07/04/17 04:15 07/04/17 04:15 - Constitutional Appears: No Acute Distress - Head Exam Head Exam: NORMAL INSPECTION - Respiratory Exam Respiratory Exam: Clear to Ausculation Bilateral, NORMAL BREATHING PATTERN. absent: Rhonchi, Wheezes - Cardiovascular Exam Cardiovascular Exam: REGULAR RHYTHM, +S1, +S2 - Neurological Exam Neurological Exam: Alert, Awake, Oriented x3 - Skin Skin Exam: Normal Color, Warm Assessment and Plan - Assessment and Plan (Free Text) Assessment: 1) Chest pain - Troponin x 3 neg - No acute findings on EKG - Cardio consult appreciated - F/U with stress test today 2) DM2 - Metformin 3) HLD - atorvastatin 4)HTN - Lisinopril - Norvasc <Mota,Matthew K - Last Filed: 07/06/17 11:30> Objective - Vital Signs/Intake and Output Vital Signs (last 24 hours): Temp Pulse Resp BP Pulse Ox 98.3 F 93 H 18 107/74 96 07/06/17 08:00 07/06/17 08:00 07/06/17 08:00 07/06/17 08:00 07/06/17 08:00 - Medications Medications: Current Medications Amlodipine Besylate (Norvasc) 5 mg PO HS [facility] Last Admin: 07/05/17 22:00 Dose: 5 mg Atorvastatin Calcium (Lipitor) 20 mg PO [facility] Last Admin: 07/05/17 21:52 Dose: 20 mg Clonazepam (Klonopin) 0.5 mg PO HS [facility] Enoxaparin Sodium (Lovenox) 40 mg SC DAILY [facility] PRN Reason: Protocol Last Admin: 07/06/17 09:04 Dose: 40 mg Ibuprofen (Motrin Tab) 600 mg PO [facility] Last Admin: 07/05/17 22:00 Dose: Not Given Metformin HCl (Glucophage) 500 mg PO TID [facility] Last Admin: 07/06/17 09:04 Dose: 500 mg Metoprolol Succinate (Toprol Xl) 25 mg PO DAILY [facility] Sertraline HCl (Zoloft) 50 mg PO [facility] Last Admin: 07/05/17 21:52 Dose: 50 mg - Labs Labs: 07/04/17 04:15 07/04/17 04:15 Assessment and Plan - Assessment and Plan (Free Text) Assessment: Patient was personally seen and examined by me in rounds with residents. Available labs and diagnostic data reviewed. Case, Patient's condition and management plan discussed with residents in rounds. Agree with resident's progress note. Plan: As ordered.
--- NOTE | 2017-07-05 09:16 | PQF GENQUE ---
Dr. Mota, Etiology of the Chest Pain? if known after the work up is completed OR: Unable to determine 07/03 Cardiology consult; PTS SYMPTOMS APPEAR TO BE SECONDARY TO ANXIETY. SHE DOES HAVE MULTIPLE CARDIAC RISK FACTORS, HOWEVER SHE RULED OUT AND IS CP FREE. ALSO SHE IS YOUNG. PLAN IS TO REPLEAT LYTES, RECHECK EKG, CHECK ECHO. IF THESE ARE NML THEN MAY HAVE ST OUTPT. 07/05 Draft Resident note: Echo showed a EF of 35%. Patient is scheduled for a stress test today. This form is a permanent part of the medical record Clarification of your documentation is requested to better reflect the severity of illness and intensity of treatment of your patient. Indicators present [] Specify: [] [] Specify: [] [] Specify: [] [] Specify: [] Location in the medical record that reflects the above clinical findings: [] Treatment Provided: [] PHYSICIAN'S RESPONSE Based on your medical judgment of the clinical indicators outlined above please clarify the following: [] Practitioner response [] If unable to determine, please check the box, sign and date. Present On Admission (POA) Indicator: [] Present at the time of admission [] Not present at the time of admission [] Clinically Undetermined In responding to this query, please exercise your independent professional judgment. The fact that a question is asked does not imply that any particular answer is desired or expected. Thank you for your clarification on this documentation. If you have any questions please call. * Thank you, Jada Gonzalez RN BSN ext. #[phone]: Gloria GUTHRIE
--- NOTE | 2017-07-05 09:58 | CP.PCM.CON ---
History of Present Illness - History of Present Illness History of Present Illness: Psychiatry consult note CC: "I'm anxious" HPI: 41 yo female w/ history of anxiety and depression, not currently in psychiatric treatment, reports feeling anxious and depressed in the context of family stress. She does not want acute inpatient psychiatric admission at this time and would like to return home. She has an outpatient social work appointment on Monday and wants to set up outpatient psychiatric treatment through that appointment. She denies SI/HI/AH/VH. She does not believe her depression and anxiety are severe enough to warrant inpatient admission. No trae/obsessions/compulsions. +Difficulty sleeping at night. She reports that Klonopin was helpful for her anxiety in the past. PMHx: DM, HLD, HTN PPHx: History of depression and anxiety, not currently in treatment. H/o inpatient admission to [facility] in 2014. All: Seasonal, NKDA SHx: Lives in [facility] w/ , 4 kids and 4 grandkids. 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 Denies illicit drugs/cig use. MSE: A + O x 3, calm, cooperative, good eye contact, mood "anxious", affect- broad/pleasant, thought process- linear/coherent, thought content- no delusions , NO SI/HI. NO AH/VH. Good I/J. Good impulse control. Impression: 41 yo female w/ history of MDD and Anxiety, presents with intermittent feelings of depression and anxiety in the context of non- compliance w/ outpatient treatment. -No acute psychiatric admission indicated -Continue Zoloft 50 mg PO Daily -Stop Xanax, start Clonazepam 0.5 mg PO HS -Patient would benefit from psychotherapy and outpatient psychiatric treatment. Past Patient History - Infectious Disease Hx of Infectious Diseases: None - Past Medical History & Family History Past Medical History?: Yes - Past Social History Smoking Status: Never Smoked Chewing Tobacco Use: No Cigar Use: No Alcohol: None Drugs: Denies Home Situation {Lives}: With Family Domestic Violence: Negative - CARDIAC Hx Cardiac Disorders: Yes Hx Atrial Fibrillation: No Hx Cardia Arrhythmia: No Hx Congestive Heart Failure: No Hx Hypercholesterolemia: Yes Hx Hypertension: Yes Hx Mitral Valve Prolapse: No Hx Pacemaker: No Hx Peripheral Edema: No - PULMONARY Hx Respiratory Disorders: Yes Hx Asthma: Yes Hx Bronchitis: Yes Hx Chronic Obstructive Pulmonary Disease (COPD): No Hx Emphysema: No Hx Pneumonia: No Hx Pulmonary Embolism: No Hx Sleep Apnea: No - NEUROLOGICAL Hx Neurological Disorder: No Hx Alzheimer's Disease: No Hx Dementia: No Hx Migraine: No Hx Multiple Sclerosis: No Hx Parkinson's Disease: No Hx Seizures: No Hx Transient Ischemic Attacks (TIA): No - HEENT Hx HEENT Problems: No - RENAL Hx Chronic Kidney Disease: No - ENDOCRINE/METABOLIC Hx Endocrine Disorders: Yes (DM) Hx Diabetes Mellitus Type 2: Yes - HEMATOLOGICAL/ONCOLOGICAL Hx Blood Disorders: Yes Hx AIDS: No Hx Anemia: Yes Hx Human Immunodeficiency Virus (HIV): No - INTEGUMENTARY Hx Dermatological Problems: No - MUSCULOSKELETAL/RHEUMATOLOGICAL Hx Musculoskeletal Disorders: Yes Hx Arthritis: Yes Hx Falls: No - GASTROINTESTINAL Hx Gastrointestinal Disorders: No - GENITOURINARY/GYNECOLOGICAL Hx Genitourinary Disorders: No Hx Sexually Transmitted Disorders: No - PSYCHIATRIC Hx Psychophysiologic Disorder: Yes Hx Anxiety: Yes Hx Substance Use: No - SURGICAL HISTORY Hx Surgeries: Yes Hx Section: Yes Hx Cholecystectomy: Yes (2007) - ANESTHESIA Hx Anesthesia: Yes Hx Anesthesia Reactions: No Hx Malignant Hyperthermia: No Meds Allergies/Adverse Reactions: Allergies Allergy/AdvReac Type Severity Reaction Status Date / Time seasonal Allergy NAUSEA Uncoded 04/08/17 22:00 - Medications Medications: Current Medications Alprazolam (Xanax) 0.25 mg PO BID PRN PRN Reason: Anxiety Stop: 07/11/17 16:36 Last Admin: 07/04/17 17:28 Dose: 0.25 mg Amlodipine Besylate (Norvasc) 5 mg PO HS [facility] Last Admin: 07/04/17 21:26 Dose: 5 mg Atorvastatin Calcium (Lipitor) 20 mg PO HS [facility] Last Admin: 07/04/17 21:26 Dose: 20 mg Enoxaparin Sodium (Lovenox) 40 mg SC DAILY [facility] PRN Reason: Protocol Last Admin: 07/04/17 09:17 Dose: 40 mg Ibuprofen (Motrin Tab) 600 mg PO HS [facility] Last Admin: 07/04/17 21:26 Dose: Not Given Lisinopril (Zestril) 5 mg PO HS [facility] Last Admin: 07/04/17 21:25 Dose: 5 mg Metformin HCl (Glucophage) 500 mg PO TID [facility] Last Admin: 07/04/17 17:24 Dose: 500 mg Sertraline HCl (Zoloft) 50 mg PO HS [facility] Last Admin: 07/04/17 21:26 Dose: 50 mg Results - Vital Signs Recent Vital Signs: Last Vital Signs Temp 98.0 F 07/05/17 08:08 Pulse 98 H 07/05/17 08:08 Resp 18 07/05/17 08:08 BP 101/72 07/05/17 08:08 Pulse Ox 95 07/05/17 08:08 - Labs Result Diagrams: 07/04/17 04:15 07/04/17 04:15 Labs: Laboratory Results - last 24 hr 07/04/17 07/04/17 10:46 15:54 POC Glucose (mg/dL) 195 H 124 H
[2017-07-05] MEDS: Enoxaparin 40 mg Syringe SC SCH (10:44)
[2017-07-06 00:27] VITALS: RESP 18
[2017-07-06 08:02] VITALS: O2SAT 96
[2017-07-06] MEDS: Enoxaparin 40 mg Syringe SC SCH (09:04)
--- NOTE | 2017-07-06 10:08 | PN ---
DATE: 07/06/2017 SUBJECTIVE: Patient seen and examined. Interim events noted. Consults noted and appreciated. Patient is status post stress test, result of which is pending. Patient feels okay. Denies any chest pain or shortness of breath. PHYSICAL EXAMINATION: GENERAL: Patient is in no acute distress. VITAL SIGNS: Stable. HEART: S1 and S2, normal and regular. LUNGS: Good bilateral air exchange. ABDOMEN: Soft, nontender EXTREMITIES: No edema. No calf swelling. No tenderness. No acute ischemia. CENTRAL NERVOUS SYSTEM: Essentially unchanged. Psychiatry consult noted and appreciated. DIAGNOSTIC DATA: Available diagnostic data reviewed. Stress test result is pending. ASSESSMENT AND PLAN: Overall, patient is medically stable. Telemetry monitoring does not reveal significant arrhythmias. Plan as ordered. Matthew Mota MD
--- NOTE | 2017-07-06 11:01 | CARD ---
APPROVED REPORT Protocol: ROBYN Test Type: Stress Nuclear Medications: METFORMIN 500 M, G NORVASC 5 MG, LIPITOR 20 MG, LOVENOX 40 MG Medical History: HYPERTENSION, ASTHMA, CHOLESTEROL, DIABETES, FAMILY HX CAD, ANEMIA, BRONCHITIS, ANXIETY, DEPRESSION, VARICOSE VEINS Target HR: 178 bpm Resting ECG: normal Resting Heart Rate: 134 bpm Resting Blood Pressure: 122/76mmHg submaximum (85%): 151 bpm TEST SUMMARY [id number]. [id number]. [id number]. [id number]. EXERCISESTAGE [id number]. EXERCISESTAGE [id number]. [id number]. POST EXERCISE Reason for Termination: Fatigue Target HR: No Max HR: 160 bpm 89% of Maximum Predicted HR: 178 bpm Exercise duration: 03:22 min:sec, 2 Stage Exercise capacity: 5.0METs Max Blood Pressure: 170/80mmHg Blood Pressure response to exercise: normal resting BP - appropriate response Heart Rate response to exercise: appropriate Chest Pain: No, none Angina index: 0 Arrhythmia: Yes, ventricular premature beats-isolated ST Change: No, none Deviation: 0 mm Stress EKG Interpretation The patient exercised for 3:22 on Stage 2 of the Robyn Protocol achieving a maximum HR of 160 bpm 89% of the maximum predicted HR 178 bpm ( 5 mets) No chest pain reported Test stopped due to fatigue Moderately decreased functional aerobic capacity Normal HR and BP response PVCs unifocal noted Normal sinus rhythm baseline/ Normal upsloping st segments with exercise EXAM: Myocardial Perfusion REST/STRESS Image QualityGood Imaging Protocol The imaging protocol used to acquire images was Rest Tc-99m/stress Tc-99m 1 dayRest Tc-99m/stress Tc-99m 1 day Rest Spect myocardial perfusion imaging was performed in supine position 120 minutes following the injection of 30 mCi of Tc-99 Myoview. Time of rest injection: 11:00 Time of rest imagin:00 At peak stress, the patient was injected intravenously with 10mCi of Tc-99 tetrofosmin after an infusion time of minutes and seconds. Time of stress injection: 10:20 Time of stress imagin:15 Gated Stress Spect was performed 55 minutes after intravenous Tc-99 Myoview injection. The images were gated to evaluate regional wall motion and calculate ventricular ejection fraction. NUCLEAR IMAGE INTERPRETATION The rest and stress images show normal perfusion, normal contraction and thickening. LV Perfusion 1 The rest and stress images show normal perfusion. CONCLUSION 1. No exercise induced myocardial ischemia. Normal perfusion both at rest and with stress. 2. Normal Gated LVEF 47% by computer , visual estimation 65% . Normal perfusion, contraction and thickening 3. Normal Exercise EKG response@ 89% MPHR ( see full report)
[2017-07-06 12:04] VITALS: BP 119/83; PULSE 83; TEMP 97.9
[2017-07-07] MEDS ORDERED: Metoprolol Succinate 25 mg XL Tab PO SCH (09:00)
== END 2017-07-06 13:00 | disposition home or self-care (01) | DRG 313 ==
LOC: H.ER 15:45 → H.ERHOLD 18:40 → INTOOBSV 19:34 → OBSVTOIN 19:34 → H.TEL 20:48 → OBSVTOIN 07-03 19:34
PROVIDERS: ADMIT Internal Medicine; ATTEND Internal Medicine
DX: R07.89 Other chest pain (principal); Z68.41 Body mass index [BMI] 40.0-44.9, adult; I10 Essential (primary) hypertension; E11.9 Type 2 diabetes mellitus without complications; F32.9 Major depressive disorder, single episode, unspecified; D64.9 Anemia, unspecified; E66.01 Morbid (severe) obesity due to excess calories; E78.5 Hyperlipidemia, unspecified; Z91.19 Patient's noncompliance with other medical treatment and regimen; J45.909 Unspecified asthma, uncomplicated; F41.9 Anxiety disorder, unspecified; M19.90 Unspecified osteoarthritis, unspecified site

== ENCOUNTER 2018-01-08 22:46 | Emergency (ER) | payer BC ==
[2018-01-08 22:46] VITALS: BMI 38.6
[2018-01-08 22:56] VITALS: RESP 18
--- NOTE | 2018-01-08 23:44 | ED PDOC ---
HPI: Head Injury Time Seen by Provider: 01/08/18 23:00 Chief Complaint (Nursing): Dizziness/Lightheaded Chief Complaint (Provider): head injury History Per: Patient History/Exam Limitations: no limitations Injury Occurred (Timing): Days Ago: (3) Patient States: Fell Striking Head Additional Complaint(s): 42 y/o female presents with head/neck pain x 3 days. 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 PAtient denies LOC, but notes intermittent headaches and blurred vision since fall, with associated neck pain. Patient states she has had surgery on her neck before and is concerned for new injury. Denies dizziness, nausea/vomiting, extremity numbness /weakness. Past Medical History Reviewed: Historical Data, Nursing Documentation, Vital Signs Vital Signs: Last Vital Signs Temp 98 F 01/08/18 22:53 Pulse 78 01/08/18 22:53 Resp 18 01/08/18 22:53 BP 125/83 01/08/18 22:53 Pulse Ox 98 01/08/18 22:53 - Medical History PMH: Anemia, Anxiety, Arthritis, Asthma, Bronchitis, Depression, Diabetes, HTN, Hypercholesterolemia Denies: Alzheimer's Disease, Atrial Fibrillation, Cardia Arrhythmia, CHF, COPD, Dementia, Deep Vein Thrombosis, Emphysema, Hepatitis, HIV, Migraine, Mitral Valve Prolapse, Multiple Sclerosis, Parkinson's Disease, Peripheral Edema , Pneumonia, Pulmonary Embolism, Chronic Kidney Disease, Seizures, Sexually Transmitted Disease, Sleep Apnea, TIA - Surgical History Surgical History: Back Surgery, Cholecystectomy (2007), Denies: Pacemaker - Family History Family History: States: Unknown Family Hx - Immunization History Hx Influenza Vaccination: Yes - Home Medications Home Medications: Ambulatory Orders Medication Instructions Recorded metFORMIN [glucOPHAGE] 500 mg PO TID 01/27/16 Atorvastatin [Lipitor] 20 mg PO DAILY 07/03/17 Lisinopril [Zestril] 5 mg PO DAILY 07/03/17 amLODIPine [Norvasc] 5 mg PO DAILY 07/03/17 Ibuprofen [Motrin Tab] 600 mg PO DAILY 07/04/17 Metoprolol Succinate [Toprol XL] 25 mg PO DAILY tab 07/06/17 Sertraline [Zoloft] 50 mg PO HS tab 07/06/17 clonazePAM [Klonopin] 0.5 mg PO HS #15 tab 07/06/17 Cyclobenzaprine [Cyclobenzaprine 10 mg PO BID PRN #14 tab 01/09/18 HCl] Naproxen [Naprosyn] 500 mg PO Q12 PRN #20 tablet 01/09/18 - Allergies Allergies/Adverse Reactions: Allergies Allergy/AdvReac Type Severity Reaction Status Date / Time seasonal Allergy NAUSEA Uncoded 04/08/17 22:00 Review of Systems ROS Statement: Except As Marked, All Systems Reviewed And Found Negative Musculoskeletal: Positive for: Neck Pain Neurological: Positive for: Headache Physical Exam - Reviewed Nursing Documentation Reviewed: Yes Vital Signs Reviewed: Yes - Physical Exam Appears: Positive for: Well, Non-toxic, No Acute Distress Head Exam: Positive for: ATRAUMATIC, NORMAL INSPECTION, NORMOCEPHALIC Skin: Positive for: Normal Color Eye Exam: Positive for: Normal appearance, EOMI, PERRL ENT: Positive for: Normal ENT Inspection Cardiovascular/Chest: Positive for: Regular Rate, Rhythm Respiratory: Positive for: Normal Breath Sounds Gastrointestinal/Abdominal: Positive for: Normal Exam Back: Positive for: Vertebral Tenderness (lower cspine; no bony deformity), Muscle Spasm (b/l cspine paraspinals). Negative for: L CVA Tenderness, R CVA Tenderness Extremity: Positive for: Normal ROM. Negative for: Tenderness, Deformity, Swelling Neurologic/Psych: Positive for: Alert, Oriented. Negative for: Motor/Sensory Deficits - ECG O2 Sat by Pulse Oximetry: 98 - Progress ED Course And Treament: CT head, CT cspine EXAM: CT Cervical Spine Without Intravenous Contrast CLINICAL HISTORY: 42 years old, female; Injury or trauma; Fall; Initial encounter; Blunt trauma; Prior surgery; Surgery date: 6+ months; Surgery type: Neck TECHNIQUE: Axial computed tomography images of the cervical spine without intravenous contrast. All CT scans at this facility use one or more dose reduction techniques, viz.: automated exposure control; ma/kV adjustment per patient size (including targeted exams where dose is matched to indication; i.e. head); or iterative reconstruction technique. Coronal and sagittal reformatted images were created and reviewed. COMPARISON: MR - SPINAL CANAL CERVICAL W/ CONT 2016-01-27 14:07 FINDINGS: Vertebrae: No acute fracture. Straightening of cervical spine. Discs/spinal canal/neural foramina: Anterior fusion from C3 to C5 levels. Mild degenerative disc disease at C5-C6 level. Mild indentation thecal sac/cord at C5-C6 level. Soft tissues: Unremarkable. Lung apices: Unremarkable as visualized. IMPRESSION: 1. No fracture. 2. Incidental/non-acute findings are described above. EXAM: CT Head Without Intravenous Contrast CLINICAL HISTORY: 42 years old, female; Injury or trauma; Fall; Initial encounter; Blunt trauma ( contusions or hematomas); Additional info: Head injury TECHNIQUE: Axial computed tomography images of the head/brain without intravenous contrast. All CT scans at this facility use one or more dose reduction techniques, viz.: automated exposure control; ma/kV adjustment per patient size (including targeted exams where dose is matched to indication; i.e. head); or iterative reconstruction technique. Coronal and sagittal reformatted images were created and reviewed. COMPARISON: No relevant prior studies available. FINDINGS: Brain: Minimal atrophy. No intracranial hemorrhage. No mass. No edema. Ventricles: No hydrocephalus. Bones/joints: No acute fracture. Soft tissues: Unremarkable. Sinuses: No acute sinusitis. Mastoid air cells: No mastoid effusion. Orbits: Unremarkable as visualized. IMPRESSION: 1. No intracranial hemorrhage. 2. Incidental/non-acute findings are described above. Patient educated on findings, discharged with instructions to follow up PMD 2-3 days. Rx naproxen, flexeril provided Return precautions given Disposition - Clinical Impression Clinical Impression: Injury of head and neck - Patient ED Disposition Is Patient to be Admitted: No Counseled Patient/Family Regarding: Studies Performed, Diagnosis, Need For Followup - Disposition Disposition: Routine/Home Disposition Time: 01:45 Condition: STABLE Prescriptions: Cyclobenzaprine [Cyclobenzaprine HCl] 10 mg PO BID PRN #14 tab PRN Reason: Muscle Spasm Naproxen [Naprosyn] 500 mg PO Q12 PRN #20 tablet PRN Reason: Pain, Moderate (4-7) Instructions: Minor Head Injury, Neck Pain Forms: [employer] (Jordanian)
[2018-01-09 01:04] VITALS: BP 131/59; PULSE 62; TEMP 98
--- NOTE | 2018-01-09 01:16 | CT ---
EXAM: CT Head Without Intravenous Contrast CLINICAL HISTORY: 42 years old, female; Injury or trauma; Fall; Initial encounter; Blunt trauma (contusions or hematomas); Additional info: Head injury TECHNIQUE: Axial computed tomography images of the head/brain without intravenous contrast. All CT scans at this facility use one or more dose reduction techniques, viz.: automated exposure control; ma/kV adjustment per patient size (including targeted exams where dose is matched to indication; i.e. head); or iterative reconstruction technique. Coronal and sagittal reformatted images were created and reviewed. COMPARISON: No relevant prior studies available. FINDINGS: Brain: Minimal atrophy. No intracranial hemorrhage. No mass. No edema. Ventricles: No hydrocephalus. Bones/joints: No acute fracture. Soft tissues: Unremarkable. Sinuses: No acute sinusitis. Mastoid air cells: No mastoid effusion. Orbits: Unremarkable as visualized. IMPRESSION: 1. No intracranial hemorrhage. 2. Incidental/non-acute findings are described above.
--- NOTE | 2018-01-09 01:20 | CT ---
EXAM: CT Cervical Spine Without Intravenous Contrast CLINICAL HISTORY: 42 years old, female; Injury or trauma; Fall; Initial encounter; Blunt trauma; Prior surgery; Surgery date: 6+ months; Surgery type: Neck TECHNIQUE: Axial computed tomography images of the cervical spine without intravenous contrast. All CT scans at this facility use one or more dose reduction techniques, viz.: automated exposure control; ma/kV adjustment per patient size (including targeted exams where dose is matched to indication; i.e. head); or iterative reconstruction technique. Coronal and sagittal reformatted images were created and reviewed. COMPARISON: MR - SPINAL CANAL CERVICAL W/ CONT 2016-01-27 14:07 FINDINGS: Vertebrae: No acute fracture. Straightening of cervical spine. Discs/spinal canal/neural foramina: Anterior fusion from C3 to C5 levels. Mild degenerative disc disease at C5-C6 level. Mild indentation thecal sac/cord at C5-C6 level. Soft tissues: Unremarkable. Lung apices: Unremarkable as visualized. IMPRESSION: 1. No fracture. 2. Incidental/non-acute findings are described above.
[2018-01-09 01:45] VITALS: O2SAT 98
== END 2018-01-09 02:10 | disposition home or self-care (01) ==
LOC: H.ER 22:46
DX: S09.90XA Unspecified injury of head, initial encounter (principal); S19.9XXA Unspecified injury of neck, initial encounter; E11.9 Type 2 diabetes mellitus without complications; Z86.59 Personal history of other mental and behavioral disorders; I10 Essential (primary) hypertension; J45.909 Unspecified asthma, uncomplicated; W10.9XXA Fall (on) (from) unspecified stairs and steps, initial encounter

== ENCOUNTER 2018-06-30 21:28 | Emergency (ER) | payer BC ==
[2018-06-30 21:28] VITALS: BMI 38.6
[2018-06-30 21:59] VITALS: BP 131/84; PULSE 91; RESP 16; TEMP 97.8; O2SAT 99
--- NOTE | 2018-06-30 22:16 | ED PDOC ---
Lower Extremity Pain/Injury Time Seen by Provider: 06/30/18 22:03 Chief Complaint (Nursing): Lower Extremity Problem/Injury Chief Complaint (Provider): Hip Pain S/P Fall History Per: Patient History/Exam Limitations: no limitations Onset/Duration Of Symptoms: Days (yesterday morning) Current Symptoms Are (Timing): Still Present Additional Complaint(s): Patient is a 42 year old female who presents to ED for evaluation of hip/thigh injury s/p fall yesterday morning. Patient states that she was carrying a lot of items when she tripped and proceeded to fall down 12 stairs. Patient states initially her pain was minimal but has been worsening since the incident occurred and now she is having difficulty ambulating. Patient took 600mg Ibuprofen at 8pm with no relief of symptoms, prompting visit. Patient denies any history of hip injury. Patient denies head injury, LOC, or other extremity pain. No other complaints at present. PMD: in [facility], cannot recall name LMP: 3 years ago Past Medical History Reviewed: Historical Data, Nursing Documentation, Vital Signs Vital Signs: Last Vital Signs Temp 97.8 F 06/30/18 21:58 Pulse 91 H 06/30/18 21:58 Resp 16 06/30/18 21:58 BP 131/84 06/30/18 21:58 Pulse Ox 99 06/30/18 21:58 - Medical History PMH: Anemia, Anxiety, Arthritis, Asthma, Bronchitis, Depression, Diabetes, HTN, Hypercholesterolemia - Surgical History Surgical History: Back Surgery (fusion- lumbar), Cholecystectomy (2008), C- Section (x1) Other surgeries: neck surgery- fusion - Family History Family History: States: Unknown Family Hx - Living Arrangements Living Arrangements: With Family - Social History Current smoker - smoking cessation education provided: No Alcohol: None Drugs: Denies - Home Medications Home Medications: Ambulatory Orders Medication Instructions Recorded RX: metFORMIN [glucOPHAGE] 500 mg PO TID 01/27/16 RX: Atorvastatin [Lipitor] 20 mg PO DAILY 07/03/17 RX: Lisinopril [Zestril] 5 mg PO DAILY 07/03/17 RX: amLODIPine [Norvasc] 5 mg PO DAILY 07/03/17 RX: Ibuprofen [Motrin Tab] 600 mg PO DAILY 07/04/17 RX: Metoprolol Succinate XL 25 mg PO DAILY tab 07/06/17 [Toprol XL] RX: Sertraline [Zoloft] 50 mg PO HS tab 07/06/17 RX: clonazePAM [Klonopin] 0.5 mg PO HS #15 tab 07/06/17 Cyclobenzaprine [Cyclobenzaprine 10 mg PO BID PRN #14 tab 01/09/18 HCl] RX: Naproxen [Naprosyn] 500 mg PO Q12 PRN #20 tablet 01/09/18 Acetaminophen [Acetaminophen 8 650 mg PO Q8 PRN #21 tablet.er 06/30/18 Hour] RX: Naproxen 500 mg PO BID PRN #20 tab 06/30/18 - Allergies Allergies/Adverse Reactions: Allergies Allergy/AdvReac Type Severity Reaction Status Date / Time seasonal Allergy NAUSEA Uncoded 04/08/17 22:00 Review of Systems ROS Statement: Except As Marked, All Systems Reviewed And Found Negative Musculoskeletal: Positive for: Leg Pain (right hip and thigh) Physical Exam - Reviewed Nursing Documentation Reviewed: Yes Vital Signs Reviewed: Yes - Physical Exam Appears: Positive for: Well, Non-toxic, No Acute Distress Head Exam: Positive for: ATRAUMATIC, NORMOCEPHALIC Skin: Positive for: Normal Color, Warm, Dry Eye Exam: Positive for: EOMI, PERRL ENT: Positive for: Other (Airway patent, (-) stridor. Mucus membranes moist.) Neck: Positive for: Painless ROM, Supple Cardiovascular/Chest: Positive for: Regular Rate, Rhythm Respiratory: Positive for: Normal Breath Sounds. Negative for: Accessory Muscle Use, Respiratory Distress Gastrointestinal/Abdominal: Positive for: Soft. Negative for: Tenderness, Distended, Guarding Back: Negative for: Vertebral Tenderness Extremity: Positive for: Tenderness (diffuse tenderess of right hip and proximal to distal femur (-) ecchymosis (-) skin break (+) decreased flexion of the hip secondary to pain), Other (right foot, ankle, calf, and knee nontender with FROM (+) pulses (+) sensation intact. ). Negative for: Pedal Edema, Calf Tenderness, Swelling Neurologic/Psych: Positive for: Alert, Oriented (x3), Gait (limping in ED). Negative for: Motor/Sensory Deficits, Aphasia, Facial Droop - Laboratory Results Urine POC: Negative - ECG O2 Sat by Pulse Oximetry: 99 (RA) Pulse Ox Interpretation: Normal Medical Decision Making Medical Decision Makin Initial Impression: hip/thigh contusion s/p fall, r/o fracture Plan: -Upreg -Hip XR Min 4 views -femur XR Min 2 views -Tramadol 50mg PO (not driving home) -Tylenol 650mg PO -Re-evaluation Upreg: negative 2310 Hip XR (-) fracture (-) dislocation as read by ISAAC Femur XR: (-) fracture as read by ISAAC Patient notified official radiology reading will be available within 24 hours and that she would be notified of any discrepancies via phone. On re-evaluation, patient reports improvement of symptoms. On exam, patient remains AAOx3, in no acute distress. Lungs clear to auscultation, cardiac RRR, repeat neuro exam shows no focal findings. Vitals stable. RICE encouraged. Patient declined crutches to assist ambulation. Lab /Diagnostic results d/w the patient in great detail. Diagnosis of acute thigh and hip pain s/p fall d/w the patient. Based on history, exam and diagnostic results, plan will be for outpatient follow up. Patient instructed to follow-up with pmd / referral provided / the clinic in 1- 2 days without fail. Advised to take medication as prescribed. Return to the emergency room at any time for any new or worsening symptoms. Patient states she fully agrees with and understands discharge instructions. States that she agrees with the plan and disposition. Verbalized and repeated discharge instructions and plan. I have given the patient opportunity to ask any additional questions. Disposition - Clinical Impression Clinical Impression: Hip pain, Thigh pain, musculoskeletal, Fall down stairs - Patient ED Disposition Is Patient to be Admitted: No Counseled Patient/Family Regarding: Studies Performed, Diagnosis, Need For Followup, Rx Given - Disposition Referrals: Omer Rivas III, MD [Staff Provider] - Disposition: Routine/Home Disposition Time: 23:15 Condition: STABLE Additional Instructions: The emergency medical care you received today was directed at your acute symptoms. If you were prescribed any medication, please fill it and take as directed. It may take several days for your symptoms to resolve. Return to the Emergency Department if your symptoms worsen, do not improve, or if you have any other problems. Please contact your doctor in 2 days for re-evaluation and follow up / or call one of the physicians/clinics you have been referred to that are listed on the Patient Visit Information form that is included in your discharge packet. Bring any paperwork you were given at discharge with you along with any medications you are taking to your follow up visit. Our treatment cannot replace ongoing medical care by a primary care provider (PCP) outside of the emergency de partment. Prescriptions: Acetaminophen [Acetaminophen 8 Hour] 650 mg PO Q8 PRN #21 tablet.er PRN Reason: Pain, Moderate (4-7) RX: Naproxen 500 mg PO BID PRN #20 tab PRN Reason: Pain, Moderate (4-7) Instructions: Muscle and Bone Pain (DC), Hip Pain Forms: [facility] (Latvian) Print Language: CYPRIOT - POA Present On Arrival: Falls Or Trauma
--- NOTE | 2018-07-01 10:40 | RAD ---
Date of service: 06/30/2018 PROCEDURE: Right femur HISTORY: s/p fall, pain COMPARISON: No prior study available for comparison however correlation made with radiographs of the left femur left hip 04/08/2017 TECHNIQUE: Frontal and lateral views of the right femur performed the FINDINGS: No evidence of acute displaced fracture nor dislocation. The osseous structures appear intact. Right femoral head is appropriately located within the right acetabulum of. Mild degenerative osteoarthritis right hip and mild moderate degenerative osteoarthritis right knee IMPRESSION: No acute fractures.
--- NOTE | 2018-07-01 10:44 | RAD ---
Date of service: 06/30/2018 PROCEDURE: Right hip and pelvis HISTORY: Status post fall, joint pain COMPARISON: Correlation made with concurrent radiographs of the right femur. TECHNIQUE: AP view of the pelvis and AP/frogleg lateral views of the right hip performed. FINDINGS: No evidence of acute displaced fracture nor dislocation. The osseous structures appear intact.. Degenerative osteoarthritis both hip joints. IMPRESSION: No acute fractures. Degenerative osteoarthritis both hip joints. The
== END 2018-06-30 23:47 | disposition home or self-care (01) ==
LOC: H.ER 21:28
DX: M25.551 Pain in right hip (principal); M79.651 Pain in right thigh; M79.10 Myalgia, unspecified site; E11.9 Type 2 diabetes mellitus without complications; Z79.84 Long term (current) use of oral hypoglycemic drugs; Z86.59 Personal history of other mental and behavioral disorders; I10 Essential (primary) hypertension; J45.909 Unspecified asthma, uncomplicated; W10.9XXA Fall (on) (from) unspecified stairs and steps, initial encounter

== ENCOUNTER 2018-08-15 09:11 | Emergency (ER) | payer OTHER ==
[2018-08-15 09:14] VITALS: BMI 41.3
[2018-08-15 09:15] VITALS: O2SAT 99
[2018-08-15 10:17] LABS: BASO # 0.1 K/uL (0.0-0.2); EOS # 0.2 K/uL (0.0-0.7); EOS % 2.4 % (0.0-4.0); HEMOGLOBIN 14.3 g/dL (12.0-16.0); LYMPH # 1.6 K/uL (1.0-4.3); LYMPH % 26.4 % (20.0-40.0); MEAN CORPUSCULAR HEMOGLOBIN 29.2 pg (27.0-31.0); MEAN CORPUSCULAR HGB CONC 33.6 g/dL (33.0-37.0); MEAN PLATELET VOLUME 8.2 fl (7.2-11.7); MONO # 0.5 K/uL (0.0-0.8); MONO % 8.3 % (0.0-10.0); NEUT # 3.8 K/uL (1.8-7.0); NEUT % 61.9 % (50.0-75.0); NRBC % 0.2 % (0.0-0.0); RBC 4.89 Mil/uL (3.80-5.20); RED CELL DISTRIBUTION WIDTH 14.7 % (11.5-14.5); WHITE BLOOD COUNT 6.2 K/uL (4.8-10.8)
--- NOTE | 2018-08-15 10:17 | ED PDOC ---
HPI: Back Time Seen by Provider: 08/15/18 09:22 Chief Complaint (Nursing): Back Pain Chief Complaint (Provider): Back Pain History Per: Patient History/Exam Limitations: no limitations Onset/Duration Of Symptoms: Days (x3 weeks) Current Symptoms Are (Timing): Still Present Additional Complaint(s): Kayla Clifford is a 42 year old female presenting for evaluation of sharp flank pain x3 weeks. Patient states the pain begins in the front and radiates to the back. Patient further reports the pain is exacerbated with movement and deep inspiration. 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 Patient also reports some coughing and admits to a history of asthma and non-compliance with her medications. Patient also reports a history of HTN and states her Metoprolol and asthma medications cause an adverse reaction, so she does not take her asthma medications. Patient denies any rash, fevers, chills, nausea, vomiting, urinary complaints, incontinence, or recent travel. Of note, patient is complaining of right calf pain. PMD: Dr. Vladimir Herring/ Provider in [facility] Past Medical History Reviewed: Historical Data Vital Signs: Last Vital Signs Temp 97.2 F L 08/15/18 09:15 Pulse 88 08/15/18 09:15 Resp 17 08/15/18 09:15 BP 120/86 08/15/18 09:15 Pulse Ox 99 08/15/18 09:15 - Medical History PMH: Anemia, Anxiety, Arthritis, Asthma, Bronchitis, Depression, Diabetes, HTN, Hypercholesterolemia Denies: Alzheimer's Disease, Atrial Fibrillation, Cardia Arrhythmia, CHF, Hepatitis, HIV, Migraine, Mitral Valve Prolapse, Multiple Sclerosis, Parkinson's Disease, Peripheral Edema, Pneumonia - Surgical History Surgical History: Back Surgery (fusion- lumbar), Cholecystectomy (2008), C- Section (x1) Denies: Pacemaker - Family History Family History: States: Unknown Family Hx - Immunization History Hx Influenza Vaccination: Yes - Home Medications Home Medications: Ambulatory Orders Medication Instructions Recorded metFORMIN [glucOPHAGE] 500 mg PO TID 01/27/16 Atorvastatin [Lipitor] 20 mg PO DAILY 07/03/17 Lisinopril [Zestril] 5 mg PO DAILY 07/03/17 amLODIPine [Norvasc] 5 mg PO DAILY 07/03/17 Ibuprofen [Motrin Tab] 600 mg PO DAILY 07/04/17 Metoprolol Succinate XL [Toprol XL] 25 mg PO DAILY tab 07/06/17 Sertraline [Zoloft] 50 mg PO HS tab 07/06/17 clonazePAM [Klonopin] 0.5 mg PO HS #15 tab 07/06/17 Cyclobenzaprine [Cyclobenzaprine 10 mg PO BID PRN #14 tab 01/09/18 HCl] Naproxen [Naprosyn] 500 mg PO Q12 PRN #20 tablet 01/09/18 Acetaminophen [Acetaminophen 8 650 mg PO Q8 PRN #21 tablet.er 06/30/18 Hour] Naproxen 500 mg PO BID PRN #20 tab 06/30/18 Naproxen [Naprosyn] 500 mg PO Q12H #30 tablet 08/15/18 - Allergies Allergies/Adverse Reactions: Allergies Allergy/AdvReac Type Severity Reaction Status Date / Time seasonal Allergy NAUSEA Uncoded 04/08/17 22:00 Review of Systems ROS Statement: Except As Marked, All Systems Reviewed And Found Negative Constitutional: Negative for: Fever, Chills Cardiovascular: Positive for: Chest Pain Respiratory: Positive for: Cough, Shortness of Breath Gastrointestinal: Positive for: Abdominal Pain. Negative for: Nausea, Vomiting, Diarrhea, Constipation Genitourinary Female: Negative for: Dysuria, Frequency, Incontinence, Hematuria Musculoskeletal: Positive for: Leg Pain (some calf pain), Other (bilateral flank pain) Physical Exam - Reviewed Nursing Documentation Reviewed: Yes Vital Signs Reviewed: Yes - Physical Exam Appears: Positive for: Non-toxic, No Acute Distress Head Exam: Positive for: ATRAUMATIC, NORMAL INSPECTION, NORMOCEPHALIC Skin: Positive for: Normal Color, Warm, Dry. Negative for: Rash Eye Exam: Positive for: EOMI, Normal appearance, PERRL Neck: Positive for: Normal, Painless ROM, Supple Cardiovascular/Chest: Positive for: Regular Rate, Rhythm, Other (mild tenderness to palpation at the right posterior ribs and right lateral rib cage). Negative for: Murmur Respiratory: Positive for: Normal Breath Sounds. Negative for: Respiratory Distress Gastrointestinal/Abdominal: Positive for: Normal Exam, Soft. Negative for: Tenderness Back: Positive for: Normal Inspection. Negative for: L CVA Tenderness, R CVA Tenderness, Vertebral Tenderness Extremity: Positive for: Normal ROM, Calf Tenderness (mild right calf tenderness) Neurologic/Psych: Positive for: Alert, Oriented (x3). Negative for: Motor/Sensory Deficits - Laboratory Results Result Diagrams: 08/15/18 10:00 08/15/18 10:00 - ECG O2 Sat by Pulse Oximetry: 99 (RA) Pulse Ox Interpretation: Normal Medical Decision Making Medical Decision Makin: Impression: Musculoskeletal pain vs acute pathology, r/o DVT Plan: -EKG -CMP -Urine dip -CBC -D Dimer -Erythrocytes -CXR -US dupex bilateral LE -Reevaluation Scribe Attestation: Documented by Reji Rios, acting as a scribe for Masha Rao MD. Provider Scribe Attestation: All medical record entries made by the Scribe were at my direction and personally dictated by me. I have reviewed the chart and agree that the record a ccurately reflects my personal performance of the history, physical exam, medical decision making, and the department course for this patient. I have also personally directed, reviewed, and agree with the discharge instructions and disposition. 1.30p - all imaging and labs results unrevealing. Patient still has pain with movement and inspiration. Will discharge on NSAIDs and followup with [facility] Disposition - Clinical Impression Clinical Impression: Musculoskeletal chest pain - Patient ED Disposition Is Patient to be Admitted: No Doctor Will See Patient In The: Office Counseled Patient/Family Regarding: Diagnosis, Need For Followup, Rx Given - Disposition Referrals: Vladimir Herrign, ANN-MARIE, [facility] [Advanced Practice Nurse] - Disposition: Routine/Home Disposition Time: 13:35 Condition: STABLE Prescriptions: Naproxen [Naprosyn] 500 mg PO Q12H #30 tablet Instructions: Costochondritis (DC) Forms: [facility] ([place]), [facility] ED School/Work Excuse - POA Present On Arrival: None
[2018-08-15 10:21] LABS: ALB/GLOB RATIO 1.1 (1.0-2.1); ALBUMIN 4.3 g/dL (3.5-5.0); BLOOD UREA NITROGEN 12 mg/dl (7-17); GFR NON-AFRICAN AMERICAN > 60
[2018-08-15 10:24] LABS: ALT/SGPT 23 U/L (9-52); AST/SGOT 29 U/L (14-36)
--- NOTE | 2018-08-15 10:48 | RAD ---
Date of service: 08/15/2018 HISTORY: diffuse pleuritic chest pain x 3 weeks COMPARISON: 07/02/2017 TECHNIQUE: Chest PA and lateral FINDINGS: LUNGS: No active pulmonary disease. PLEURA: No significant pleural effusion identified. No pneumothorax apparent. CARDIOVASCULAR: No aortic atherosclerotic calcification present. Normal cardiac size. No pulmonary vascular congestion. OSSEOUS STRUCTURES: Bilateral symmetrical 1st coaster cartilaginous junctional osseous hypertrophy-similar. Partially visualized is an anterior cervical fusion plate present. Right lateral marginal osteophytes thoracic spine-similar appearing VISUALIZED UPPER ABDOMEN: Normal. OTHER FINDINGS: None. IMPRESSION: No acute cardiopulmonary pathology appreciated. Other findings as above.
--- NOTE | 2018-08-15 12:46 | US ---
Date of service: 08/15/2018 PROCEDURE: Right lower extremity venous duplex Doppler. HISTORY: right calf pain, chest pain COMPARISON: None available. TECHNIQUE: Common femoral, superficial femoral, popliteal and posterior tibial veins were evaluated. Flow was assessed with color Doppler, compressibility, assessment of phasic flow and augmentation response. FINDINGS: COMMON FEMORAL VEIN: Unremarkable. SUPERFICIAL FEMORAL VEIN: Unremarkable. POPLITEAL VEIN: Unremarkable. POSTERIOR TIBIAL VEIN: Unremarkable. OTHER FINDINGS: None. IMPRESSION: No evidence of deep venous thrombosis in the right lower extremity.
[2018-08-15 14:14] VITALS: BP 121/89; PULSE 91; RESP 18; TEMP 98.7
--- NOTE | 2018-08-15 19:37 | CARD ---
APPROVED REPORT Date of service: 08/15/2018 EKG Measurement Heart [id number] <Conclusion> Normal sinus rhythm Normal ECG
== END 2018-08-15 14:28 | disposition home or self-care (01) ==
LOC: H.ER 09:11
DX: R07.89 Other chest pain (principal); E11.9 Type 2 diabetes mellitus without complications; I10 Essential (primary) hypertension

== ENCOUNTER 2018-12-11 20:27 | Emergency (ER) | payer SELFPAY ==
[2018-12-11 20:27] VITALS: BMI 41.3
[2018-12-11 20:50] VITALS: TEMP 98.1; O2SAT 98
[2018-12-11] MEDS ORDERED: Albuterol-Ipratrop 3 mg / 0.5 (3 ml) UD INH STA (22:42)
[2018-12-11] MEDS ORDERED: Albuterol-Ipratrop 3 mg / 0.5 (3 ml) UD ONE (23:00)
[2018-12-11 23:25] LABS: BASO # 0.1 K/uL (0.0-0.2); BASO % 0.9 % (0.0-2.0); EOS # 0.1 K/uL (0.0-0.7); EOS % 1.7 % (0.0-4.0); HEMOGLOBIN 13.6 g/dL (12.0-16.0); LYMPH # 2.3 K/uL (1.0-4.3); LYMPH % 28.9 % (20.0-40.0); MEAN CELL VOLUME 84.7 fl (81.0-99.0); MEAN CORPUSCULAR HEMOGLOBIN 28.7 pg (27.0-31.0); MEAN CORPUSCULAR HGB CONC 33.9 g/dL (33.0-37.0); MONO # 0.6 K/uL (0.0-0.8); NEUT # 4.7 K/uL (1.8-7.0); NEUT % 60.5 % (50.0-75.0); NRBC % 0.1 % (0.0-0.0); RBC 4.72 Mil/uL (3.80-5.20); WHITE BLOOD COUNT 7.8 K/uL (4.8-10.8)
[2018-12-11 23:30] LABS: PROTHROMBIN TIME 11.6 Seconds (9.8-13.1)
[2018-12-11 23:32] LABS: SQUAMOUS EPITHIAL 1 /hpf (0-5); URINE BACTERIA RARE (<OCC); URINE BILIRUBIN NEGATIVE (NEGATIVE); URINE BLOOD NEGATIVE (NEGATIVE); URINE CLARITY SLIGHTY-CLOUDY (Clear); URINE COLOR YELLOW (YELLOW); URINE GLUCOSE (UA) NEG (NEGATIVE); URINE LEUKOCYTE ESTERASE TRACE Leu/uL (Negative); URINE PROTEIN 30 mg/dL (NEGATIVE); URINE UROBILINOGEN 0.2-1.0 mg/dL (0.2-1.0)
[2018-12-11 23:33] LABS: PARTIAL THROMBOPLASTIN TIME 34.2 Seconds (25.6-37.1)
[2018-12-11 23:34] LABS: ALB/GLOB RATIO 1.1 (1.0-2.1); ALBUMIN 4.1 g/dL (3.5-5.0); ALT/SGPT 29 U/L (9-52); AST/SGOT 20 U/L (14-36); BLOOD UREA NITROGEN 15 mg/dl (7-17); CALCIUM 9.3 mg/dL (8.4-10.2); GFR NON-AFRICAN AMERICAN > 60
--- NOTE | 2018-12-12 00:12 | ED PDOC ---
HPI: Chest Pain Time Seen by Provider: 12/11/18 22:35 Chief Complaint (Nursing): Chest Pain Chief Complaint (Provider): Chest Pain History Per: Patient History/Exam Limitations: no limitations Onset/Duration Of Symptoms: Days (x 1) Current Symptoms Are (Timing): Still Present Severity: Moderate Quality: "Pain" Exacerbating Factors: Movement, Other (cough) Additional Complaint(s): 43 year old female with a history of asthma presents to the ED with right sided chest pain worsening over one day. Pain is worse with movement and cough and is not present when she is still. She is unsure if symptoms are related to her asthma. Denies diaphoresis and vomiting. PMD: none provided Past Medical History Reviewed: Historical Data, Nursing Documentation, Vital Signs Vital Signs: Last Vital Signs Temp 98.1 F 12/11/18 20:47 Pulse 109 H 12/11/18 20:47 Resp 20 12/11/18 20:47 BP 123/78 12/11/18 20:47 Pulse Ox 98 12/11/18 20:47 - Medical History PMH: Anemia, Anxiety, Arthritis, Asthma, Bronchitis, Depression, Diabetes, HTN, Hypercholesterolemia Denies: Alzheimer's Disease, Atrial Fibrillation, Cardia Arrhythmia, CHF, Hepatitis, HIV, Migraine, Mitral Valve Prolapse, Multiple Sclerosis, Parkinson's Disease, Peripheral Edema, Pneumonia - Surgical History Surgical History: Back Surgery (fusion- lumbar), Cholecystectomy (2007), C- Section (x1) Denies: Pacemaker - Family History Family History: States: Unknown Family Hx - Immunization History Hx Influenza Vaccination: Yes - Home Medications Home Medications: Ambulatory Orders Medication Instructions Recorded metFORMIN [glucOPHAGE] 500 mg PO TID 01/27/16 Atorvastatin [Lipitor] 20 mg PO DAILY 07/03/17 Lisinopril [Zestril] 5 mg PO DAILY 07/03/17 amLODIPine [Norvasc] 5 mg PO DAILY 07/03/17 Ibuprofen [Motrin Tab] 600 mg PO DAILY 07/04/17 Metoprolol Succinate XL [Toprol XL] 25 mg PO DAILY tab 07/06/17 Sertraline [Zoloft] 50 mg PO HS tab 07/06/17 clonazePAM [Klonopin] 0.5 mg PO HS #15 tab 07/06/17 Cyclobenzaprine [Cyclobenzaprine 10 mg PO BID PRN #14 tab 01/09/18 HCl] Naproxen [Naprosyn] 500 mg PO Q12 PRN #20 tablet 01/09/18 Acetaminophen [Acetaminophen 8 650 mg PO Q8 PRN #21 tablet.er 06/30/18 Hour] Naproxen 500 mg PO BID PRN #20 tab 06/30/18 Naproxen [Naprosyn] 500 mg PO Q12H #30 tablet 08/15/18 Albuterol HFA [Ventolin HFA 90 2 puff IH [id number] #1 pump 12/11/18 mcg/actuation (8 g)] Prednisone 50 mg PO DAILY #4 tablet 12/11/18 - Allergies Allergies/Adverse Reactions: Allergies Allergy/AdvReac Type Severity Reaction Status Date / Time seasonal Allergy NAUSEA Uncoded 12/11/18 20:47 Review of Systems ROS Statement: Except As Marked, All Systems Reviewed And Found Negative Constitutional: Negative for: Sweats Cardiovascular: Positive for: Chest Pain (right sided) Gastrointestinal: Negative for: Vomiting Physical Exam - Reviewed Nursing Documentation Reviewed: Yes Vital Signs Reviewed: Yes - Physical Exam Appears: Positive for: Non-toxic, No Acute Distress Head Exam: Positive for: ATRAUMATIC, NORMAL INSPECTION, NORMOCEPHALIC Skin: Positive for: Normal Color, Warm, Dry Eye Exam: Positive for: EOMI, Normal appearance, PERRL Neck: Positive for: Normal, Painless ROM Cardiovascular/Chest: Positive for: Regular Rate, Rhythm. Negative for: Murmur Respiratory: Positive for: Decreased Breath Sounds (bilateral decreased air entry), Wheezing (bilaterally). Negative for: Respiratory Distress Gastrointestinal/Abdominal: Positive for: Normal Exam, Soft. Negative for: Tenderness Back: Positive for: Normal Inspection. Negative for: L CVA Tenderness, R CVA Tenderness Extremity: Positive for: Normal ROM (x 4). Negative for: Deformity Neurological/Psych: Positive for: Awake, Alert, Normal Tone, Oriented. Negative for: Motor/Sensory Deficits - Laboratory Results Result Diagrams: 12/11/18 23:19 12/11/18 23:19 Lab Results: PT 11.6 Seconds (9.8-13.1) 12/11/18 23:19 INR 1.0 12/11/18 23:19 APTT 34.2 Seconds (25.6-37.1) 12/11/18 23:19 Troponin I < 0.0120 ng/mL (0.00-0.120) 12/11/18 23: Total Bilirubin 0.3 mg/dl (0.2-1.3) 12/11/18 23:19 AST 20 U/L (14-36) 12/11/18 23:19 ALT 29 U/L (9-52) 12/11/18 23:19 Alkaline Phosphatase 83 U/L (38-126) 12/11/18 23: Total Protein 7.9 G/DL (6.3-8.2) 12/11/18 23: Albumin 4.1 g/dL (3.5-5.0) 12/11/18 23: Globulin 3.9 gm/dL (2.2-3.9) 12/11/18 23: Albumin/Globulin Ratio 1.1 (1.0-2.1) 12/11/18 23:19 Urine Color Yellow (YELLOW) 12/11/18 23:24 Urine Clarity Slighty-cloudy (Clear) 12/11/18 23:24 Urine pH 5.0 (5.0-8.0) 12/11/18 23:24 Ur Specific [place] 1.028 (1.003-1.030) 12/11/18 23:24 Urine Protein 30 mg/dL (NEGATIVE) 12/11/18 23:24 Urine Glucose (UA) Neg mg/dL (NEGATIVE) 12/11/18 23:24 Urine Ketones Negative mg/dL (NEGATIVE) 12/11/18 23:24 Urine Blood Negative (NEGATIVE) 12/11/18 23:24 Urine Nitrate Negative (NEGATIVE) 12/11/18 23:24 Urine Bilirubin Negative (NEGATIVE) 12/11/18 23:24 Urine Urobilinogen 0.2-1.0 mg/dL (0.2-1.0) 12/11/18 23:24 Ur Leukocyte Esterase Trace Gabriela/uL (Negative) 12/11/18 23:24 Urine RBC (Auto) 3 /hpf (0-3) 12/11/18 23:24 Urine Microscopic WBC 6 /hpf (0-5) H 12/11/18 23:24 Ur Squamous Epith Cells 1 /hpf (0-5) 12/11/18 23:24 Urine Bacteria Rare (<OCC) 12/11/18 23:24 - ECG O2 Sat by Pulse Oximetry: 98 (RA) Pulse Ox Interpretation: Normal Medical Decision Making Medical Decision Makin:35 MDM: workup for chest pain with allergy exacerbation r/o cardiac etiology of pain Kimmy. solumedrol, reassess 23:55 Patient reports resolution of symptoms. Labs including troponin and urine are unremarkable. Patient to be discharged home. Follow up with PMD. Return parameters discharged. ------ Scribe Attestation: Documented by Eleanor Nelson, acting as a scribe Evelia Weir MD Provider Scribe Attestation: All medical record entries made by the Scribe were at my direction and personal ly dictated by me. I have reviewed the chart and agree that the record accurately reflects my personal performance of the history, physical exam, medical decision making, and the department course for this patient. I have also personally directed, reviewed, and agree with the discharge instructions and disposition. Disposition - Clinical Impression Clinical Impression: Atypical chest pain, Asthma exacerbation - Patient ED Disposition Is Patient to be Admitted: No - Disposition Disposition: Routine/Home Disposition Time: 23:55 Condition: IMPROVED Additional Instructions: Follow up with primary medical doctor in 3 to 5 days. Take Prednisone daily for asthma exacerbation for the next 4 days. Return to the emergency department if symptoms worsen or if new symptoms develop. Prescriptions: Albuterol HFA [Ventolin HFA 90 mcg/actuation (8 g)] 2 puff IH [id number] #1 pump Prednisone 50 mg PO DAILY #4 tablet Instructions: Asthma in Adults Forms: [employer] (Bengali), [facility] ED School/Work Excuse Print Language: BENGALI
[2018-12-12 00:22] VITALS: BP 131/71; PULSE 89; RESP 17
--- NOTE | 2018-12-12 11:03 | CARD ---
APPROVED REPORT Date of service: 12/11/2018 EKG Measurement Heart [id number] <Conclusion> Normal sinus rhythm Normal ECG
--- NOTE | 2018-12-12 13:37 | RAD ---
Date of service: 12/11/2018 HISTORY: possible admission COMPARISON: 08/15/2018. FINDINGS: LUNGS: No active pulmonary disease. PLEURA: No significant pleural effusion identified, no pneumothorax apparent. CARDIOVASCULAR: No atherosclerotic calcification present Normal. OSSEOUS STRUCTURES: No significant abnormalities. VISUALIZED UPPER ABDOMEN: Normal. OTHER FINDINGS: None. IMPRESSION: No active disease. No significant interval change compared to the prior examination(s).
== END 2018-12-12 00:21 | disposition home or self-care (01) ==
LOC: H.ER 20:27
DX: R07.9 Chest pain, unspecified (principal); J45.901 Unspecified asthma with (acute) exacerbation; E11.9 Type 2 diabetes mellitus without complications; I10 Essential (primary) hypertension; Z79.84 Long term (current) use of oral hypoglycemic drugs; Z79.899 Other long term (current) drug therapy; Z86.59 Personal history of other mental and behavioral disorders
CPT/HCPCS: 71045; 80053; 81003; 84484; 85025; 85610; 85730; 93005; 96374; 99283; J2930